=== PATIENT | female | born 1995 | race Caucasian/White ===

== ENCOUNTER 2018-05-18 23:12 | Emergency (ER) | payer OTHER ==
[2018-05-18 23:23] VITALS: BP 134/63; PULSE 94; TEMP 98; BMI 34.7
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
[2018-05-19] MEDS ORDERED: IBUPROFEN 600 MG TABLET (FP) PO ONE ×2 (00:16→00:30)
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
== END 2018-05-19 02:07 | disposition home or self-care (01) ==
LOC: JER 23:12
DX: M25.561 Pain in right knee (principal); V03.90XA Pedestrian on foot injured in collision with car, pick-up truck or van, unspecified whether traffic or nontraffic accident, initial encounter; Y93.89 Activity, other specified; Y92.89 Other specified places as the place of occurrence of the external cause
CPT/HCPCS: 73562-TC-RT-FY; 84703; 99281-25

== ENCOUNTER 2019-01-31 04:56 | Emergency (ER) | payer OTHER ==
[2019-01-31 05:19] VITALS: BMI 34.0
[2019-01-31] MEDS ORDERED: SODIUM CHLORIDE 0.9% 500 ML INFUS.BAG IV ONE (05:33)
[2019-01-31] MEDS ORDERED: FAMOTIDINE 20 MG/50 ML IVPB 20 MG/50 ML MG IVPB ONE ×2 (05:33→06:14)
[2019-01-31] MEDS ORDERED: ONDANSETRON 4 MG/2 ML VIAL IVPB ONE (05:34)
[2019-01-31] MEDS ORDERED: ACETAMINOPHEN 1000 MG/100 ML VIAL (NON FORMULARY) IVPB ONE (05:34)
--- NOTE | 2019-01-31 05:38 | PDOC ---
Attending Attestation - Resident Resident Name: Maria E Hernandez - ED Attending Attestation I have performed the following: I have examined & evaluated the patient, The case was reviewed & discussed with the resident, I agree w/resident's findings & plan - HPI HPI: 01/31/19 05:44 Pt ate a uruguayan chicken sandwich today and nothing else. She has food poisoning and abd cramps. Diffuse periumbilical pain. No RLQ pain and no LLQ pain and no epig pain. She has no fever. She has no flank pain and no dysuria. She is expecting her menses in 1 week. She has no PMHx other than asthma. 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 - Physicial Exam PE: 01/31/19 05:46 Normal exam. Crampy abd pain. - Medical Decision Making 01/31/19 05:45 Labs and IVF and reglan and morphine 01/31/19 07:06 Signed out to the day team
--- NOTE | 2019-01-31 05:40 | PDOC ---
History of Present Illness - General Chief Complaint: Pain, Acute Stated Complaint: ABDOMINAL PAIN History Source: Patient - History of Present Illness Initial Comments: 01/31/19 05:35 23 y/o/f here for abdominal pain, vomiting and diarrhea that started last night at 2100 about one hour after she had a chicken sandwich that she thinks may have gone bad. Patient states that the pain is cramping and nature. She has vomited 3 times with no blood in her vomit. She states she has had almost constant diarrhea and noted some blood in her in stool. Patient endorses some nausea, chills, and lightheadedness and feeling dehydrated. She denies any chest pain, fevers, SOB, cough, or other symptoms. Patients last menstrual period ended on 01/09, she is currently sexually active and does not use protection or any kind of contraception. PMHx: denies SHx: denies Social: denies alcohol and tobacco use Past History - Past Medical History Allergies/Adverse Reactions: Allergies Allergy/AdvReac Type Severity Reaction Status Date / Time No Known Allergies Allergy Verified 01/31/19 05:18 Home Medications: Ambulatory Orders Ibuprofen [Motrin -] 400 mg PO QID #28 tablet 08/18/15 Ondansetron [Zofran *Odt*] 4 mg SL TID PRN #9 od.tablet 01/31/19 Asthma: No Cancer: No Cardiac Disorders: No COPD: No Diabetes: No HTN: No Seizures: No Thyroid Disease: No - Reproductive History (#): 5 Para: 3 Cervical CA: No Dysfunctional Uterine Bleeding: No Ectopic : No Endometrial CA: No Polycystic Ovaries: No Therapeutic (s) & number: No Tubal Ligation: No Spontaneous : 1 - Immunization History Immunization Up to Date: Yes - Suicide/Smoking/Psychosocial Hx Smoking Status: No Smoking History: Never smoked Have you smoked in the past 12 months: No Number of Cigarettes Smoked Daily: 0 Information on smoking cessation initiated: No Hx Alcohol Use: No Drug/Substance Use Hx: No Substance Use Type: None Hx Substance Use Treatment: No Review of Systems - Review of Systems Constitutional: Yes: Chills. No: Fever HEENTM: No: Nose Congestion Respiratory: No: Cough, Shortness of Breath Cardiac (ROS): Yes: Lightheadedness. No: Chest Pain ABD/GI: Yes: Diarrhea, Nausea, Vomiting, Other (epigastric and suprapubic abd pain) : No: Burning, Dysuria Musculoskeletal: No: Back Pain Integumentary: No: Rash Neurological: No: Headache Endocrine: No: Excessive Sweating *Physical Exam - Vital Signs Last Vital Signs Temp Pulse Resp BP Pulse Ox 98.2 F 76 20 119/72 99 01/31/19 05:18 01/31/19 05:18 01/31/19 05:18 01/31/19 05:18 01/31/19 05:18 - Physical Exam General Appearance: Yes: Obese HEENT: positive: EOMI, Normal Voice, Symmetrical Neck: positive: Trachea midline, Supple Respiratory/Chest: positive: Lungs Clear, Normal Breath Sounds Cardiovascular: positive: Regular Rhythm, Regular Rate, S1, S2 Gastrointestinal/Abdominal: positive: Normal Bowel Sounds, Tender (epigastric and suprapubic tenderness to palpation ). negative: Guarding, Rebound Rectal Exam: positive: other (no emigdio blood seen on rectal exam). negative: hemorrhoids Musculoskeletal: negative: CVA Tenderness Extremity: positive: Normal Capillary Refill Integumentary: positive: Dry Neurologic: positive: Fully Oriented, Alert, Motor Strength 5/5 ED Treatment Course - LABORATORY CBC & Chemistry Diagram: 01/31/19 06:30 01/31/19 06:30 Medical Decision Making - Medical Decision Making -23 y/o/f here for abdominal pain, vomiting and diarrhea that started last night at 2100 about one hour after she had a chicken sandwich that she thinks may have gone bad. Patient states that the pain is cramping in nature. -Work up with CBC, CMP, UA, serum , Urine culture, lipase. -Symptom management with fluids, pepcid, Zofran, and tylenol. 01/31/19 07:25 -Patient signed out to Dr. Alonso. *DC/Admit/Observation/Transfer Diagnosis at time of Disposition: Nausea vomiting and diarrhea - Discharge Dispostion Disposition: HOME Condition at time of disposition: Improved - Prescriptions Prescriptions: Ondansetron [Zofran *Odt*] 4 mg SL TID PRN #9 od.tablet PRN Reason: Nausea - Referrals - Patient Instructions Printed Discharge Instructions: [place] Diet, DI for Diarrhea and Traveler's Diarrhea -- Adult, Nausea and Vomiting-Adult Additional Instructions: Follow up with your primary care doctor within 3 days regarding your Emergency Room visit. Bring all paperwork given to you today to your appointment. Take all prescriptions as indicated on labels. Eat a bland diet for 24-48 hours - bread/rice/toast/soup/applesauce. -Advance your diet as tolerated. Drink lots of pedialyte/gatorade to replace the fluids/electrolytes you have lost in the vomit/diarrhea. Take Tylenol over the counter for fever/pain. Take as advised on label. Take Ibuprofen over the counter for pain. Take as advised on label. These are not the same medications and can be taken together or alternating to achieve better pain control. Return to the Emergency Department for lightheadedness, chest pain, shortness of breath, fever>103F, fever>5 days or any other new, worsening or concerning symptoms. - Post Discharge Activity Forms/Work/School Notes: Back to Work
[2019-01-31] MEDS ORDERED: morphine CARPU-JECT 2 MG/1 ML DISP.SYRIN IVPUSH ONE (05:47)
[2019-01-31] MEDS ORDERED: ONDANSETRON 4 MG/2 ML VIAL ONE (06:14)
[2019-01-31] MEDS ORDERED: ACETAMINOPHEN INJECTION 100 ML IVPB ONE (06:14)
[2019-01-31] MEDS ORDERED: MORPHINE SULFATE 2 MG/ML VIAL ONE (06:14)
[2019-01-31 07:09] LABS: BASO % 0.7 % (0-2.0); EOS % 1.2 % (0-4.5); HEMATOCRIT 32.3 % (32.4-45.2); HEMOGLOBIN 10.5 GM/dL (10.7-15.3); LYMPH % 17.8 % (8-40); MCH 25.6 pg (25.7-33.7); MCHC 32.4 g/dl (32.0-36.0); MEAN CELL VOLUME 78.9 fl (80-96); MEAN PLT VOLUME 9.1 fl (7.5-11.1); MONO % 5.6 % (3.8-10.2); NEUT % 74.7 % (42.8-82.8); PLATELET COUNT 247 K/MM3 (134-434); RBC 4.09 M/mm3 (3.60-5.2); RDW 15.4 % (11.6-15.6); WHITE BLOOD COUNT 9.2 K/mm3 (4.0-10.0)
[2019-01-31 07:24] VITALS: BP 121/75; PULSE 78; TEMP 98.3
--- NOTE | 2019-01-31 07:30 | PDOC ---
ED Treatment Course - LABORATORY CBC & Chemistry Diagram: 01/31/19 06:30 01/31/19 06:30 - Medications Given in the ED: ED Medications Discontinued Medications Generic Name Dose Route Start Last Admin Trade Name Freshannon PRN Reason Stop Dose Admin Acetaminophen 1,000 mg 01/31/19 05:34 01/31/19 06:43 Ofirmev Injection - IVPB 01/31/19 05:35 1,000 mg ONCE ONE Administration Famotidine/Sodium Chloride 20 mg in 50 mls @ 100 mls/hr 01/31/19 05:33 06:43 Pepcid 20 Mg Premixed Ivpb - IVPB 01/31/19 06:02 100 mls/hr ONCE ONE Administration Morphine Sulfate 2 mg 01/31/19 05:47 01/31/19 06:43 Morphine Injection - IVPUSH 01/31/19 05:48 2 mg ONCE ONE Administration Ondansetron HCl 8 mg 01/31/19 05:34 01/31/19 06:43 Zofran Injection IVPB 01/31/19 05:35 8 mg ONCE ONE Administration Sodium Chloride 1,000 ml 01/31/19 05:33 01/31/19 06:42 Normal Saline - IV 01/31/19 05:34 1,000 ml ONCE ONE Administration Medical Decision Making - Medical Decision Making Pt signed out to me by Dr. Hernandez, see prior note. 23 year old female with no PMH presented to ED for epigastric and suprapubic pain associated with nausea/vomiting/diarrhea, pt noted some blood in stool. LMP 01/09/19. Initial Vital Signs Temp Pulse Resp BP Pulse Ox 98.2 F 76 20 119/72 99 01/31/19 05:18 01/31/19 05:18 01/31/19 05:18 01/31/19 05:18 01/31/19 05:18 Afebrile. No tachycardia. No tachypnea. No hypotension. No hypoxia on room air. Pt was given medications below: ED Medications Discontinued Medications Generic Name Dose Route Start Last Admin Trade Name Jacqueline PRN Reason Stop Dose Admin Acetaminophen 1,000 mg 01/31/19 05:34 01/31/19 06:43 Ofirmev Injection - IVPB 01/31/19 05:35 1,000 mg ONCE ONE Administration Famotidine/Sodium Chloride 20 mg in 50 mls @ 100 mls/hr 01/31/19 05:33 06:43 Pepcid 20 Mg Premixed Ivpb - IVPB 01/31/19 06:02 100 mls/hr ONCE ONE Administration Morphine Sulfate 2 mg 01/31/19 05:47 01/31/19 06:43 Morphine Injection - IVPUSH 01/31/19 05:48 2 mg ONCE ONE Administration Ondansetron HCl 8 mg 01/31/19 05:34 01/31/19 06:43 Zofran Injection IVPB 01/31/19 05:35 8 mg ONCE ONE Administration Sodium Chloride 1,000 ml 01/31/19 05:33 01/31/19 06:42 Normal Saline - IV 01/31/19 05:34 1,000 ml ONCE ONE Administration Vital Signs Temperature 98.3 F 01/31/19 07:23 Pulse Rate 78 01/31/19 07:23 Respiratory Rate 20 01/31/19 07:23 Blood Pressure 121/75 01/31/19 07:23 O2 Sat by Pulse Oximetry (%) 98 01/31/19 07:23 Pt remained afebrile. No tachycardia. No tachypnea. No hypotension. No hypoxia on room air. 01/31/19 07:40 01/31/19 06:30 Serum , Qual Negative 01/31/19 07:57 CMP Sodium 137 mmol/L (136-145) 01/31/19 06:30 Potassium 4.2 mmol/L (3.5-5.1) 01/31/19 06:30 Chloride 105 mmol/L (98-107) 01/31/19 06:30 Carbon Dioxide 25 mmol/L (21-32) 01/31/19 06:30 Anion Gap 7 MMOL/L (8-16) L 01/31/19 06:30 BUN 12.3 mg/dL (7-18) 01/31/19 06:30 Creatinine 0.6 mg/dL (0.55-1.3) 01/31/19 06:30 Est GFR (CKD-EPI)AfAm 146.83 01/31/19 06:30 Est GFR (CKD-EPI)NonAf 126.68 01/31/19 06:30 Random Glucose 108 mg/dL (74-106) H 01/31/19 06:30 Calcium 9.3 mg/dL (8.5-10.1) 01/31/19 06:30 Total Bilirubin 0.3 mg/dL (0.2-1) 01/31/19 06:30 AST 17 U/L (15-37) 01/31/19 06:30 ALT 29 U/L (13-61) 01/31/19 06:30 Alkaline Phosphatase 67 U/L (45-117) 01/31/19 06:30 Total Protein 7.3 g/dl (6.4-8.2) 01/31/19 06:30 Albumin 3.8 g/dl (3.4-5.0) 01/31/19 06:30 Lipase 64 U/L (73-393) L 01/31/19 06:30 No electrolyte abnormalities. No CURT. No transaminitis. Lipase wnl. 01/31/19 08:01 CBC WBC 9.2 K/mm3 (4.0-10.0) 01/31/19 06:30 RBC 4.09 M/mm3 (3.60-5.2) 01/31/19 06:30 Hgb 10.5 GM/dL (10.7-15.3) L 01/31/19 06:30 Hct 32.3 % (32.4-45.2) L D 01/31/19 06:30 MCV 78.9 fl (80-96) L 01/31/19 06:30 MCH 25.6 pg (25.7-33.7) L D 01/31/19 06:30 MCHC 32.4 g/dl (32.0-36.0) 01/31/19 06:30 RDW 15.4 % (11.6-15.6) 01/31/19 06:30 Plt Count 247 K/MM3 (134-434) 01/31/19 06:30 MPV 9.1 fl (7.5-11.1) 01/31/19 06:30 Absolute Neuts (auto) 6.9 K/mm3 (1.5-8.0) 01/31/19 06:30 Neutrophils % 74.7 % (42.8-82.8) 01/31/19 06:30 Lymphocytes % 17.8 % (8-40) 01/31/19 06:30 Monocytes % 5.6 % (3.8-10.2) 01/31/19 06:30 Eosinophils % 1.2 % (0-4.5) D 01/31/19 06:30 Basophils % 0.7 % (0-2.0) 01/31/19 06:30 Nucleated RBC % 0 % (0-0) 01/31/19 06:30 No leukocytosis. Mild microcytic anemia. 01/31/19 08:34 Pt reported improvement of symptoms, tolerated PO challenge, IV still running. 01/31/19 08:55 Stool guiaic negative. 01/31/19 08:56 Pt reassessed, reported improvement of symptoms, requesting discharge. Pt discharged with prescription for Zofran sent to pharmacy. *DC/Admit/Observation/Transfer Diagnosis at time of Disposition: Nausea vomiting and diarrhea - Discharge Dispostion Disposition: HOME Condition at time of disposition: Improved Decision to Admit order: No - Prescriptions Prescriptions: Ondansetron [Zofran *Odt*] 4 mg SL TID PRN #9 od.tablet PRN Reason: Nausea - Referrals - Patient Instructions Printed Discharge Instructions: [place] Diet, DI for Diarrhea and Traveler's Diarrhea -- Adult, Nausea and Vomiting-Adult Additional Instructions: Follow up with your primary care doctor within 3 days regarding your Emergency Room visit. Bring all paperwork given to you today to your appointment. Take all prescriptions as indicated on labels. Eat a bland diet for 24-48 hours - bread/rice/toast/soup/applesauce. -Advance your diet as tolerated. Drink lots of pedialyte/gatorade to replace the fluids/electrolytes you have lost in the vomit/diarrhea. Take Tylenol over the counter for fever/pain. Take as advised on label. Take Ibuprofen over the counter for pain. Take as advised on label. These are not the same medications and can be taken together or alternating to achieve better pain control. Return to the Emergency Department for lightheadedness, chest pain, shortness of breath, fever>103F, fever>5 days or any other new, worsening or concerning symptoms. - Post Discharge Activity Forms/Work/School Notes: Back to Work
[2019-01-31 07:44] LABS: ALBUMIN 3.8 g/dl (3.4-5.0); BILIRUBIN,TOTAL 0.3 mg/dL (0.2-1); BLOOD UREA NITROGEN 12.3 mg/dL (7-18); CALCIUM 9.3 mg/dL (8.5-10.1); CREATININE 0.6 mg/dL (0.55-1.3); POTASSIUM 4.2 mmol/L (3.5-5.1); TOT PROT 7.3 g/dl (6.4-8.2)
[2019-01-31 09:34] LABS: URINE APPEARANCE CLEAR; URINE BILIRUBIN NEGATIVE (NEGATIVE); URINE COLOR YELLOW; URINE GLUCOSE (UA) NEGATIVE (NEGATIVE); URINE KETONE NEGATIVE (NEGATIVE); URINE LEUK ESTERASE NEGATIVE (NEGATIVE); URINE NITRITE NEGATIVE (NEGATIVE); URINE PROTEIN NEGATIVE (NEGATIVE); URINE UROBILINOGEN 0.2 mg/dL (0.2-1.0)
== END 2019-01-31 09:31 | disposition home or self-care (01) ==
LOC: JER 04:56
PROC: 3E033GC Introduction of Other Therapeutic Substance into Peripheral Vein, Percutaneous Approach (ICD-10-PCS; principal; 2019-01-31)
PROC: 3E033NZ Introduction of Analgesics, Hypnotics, Sedatives into Peripheral Vein, Percutaneous Approach (ICD-10-PCS; 2019-01-31)
PROC: 3E033NZ Introduction of Analgesics, Hypnotics, Sedatives into Peripheral Vein, Percutaneous Approach (ICD-10-PCS; 2019-01-31)
PROC: 3E033GC Introduction of Other Therapeutic Substance into Peripheral Vein, Percutaneous Approach (ICD-10-PCS; 2019-01-31)
DX: R11.2 Nausea with vomiting, unspecified (principal); R19.7 Diarrhea, unspecified
CPT/HCPCS: 36415; 80053; 81003; 82272; 83690; 84703; 85025; 87086; 99284-25; J0131

== ENCOUNTER 2019-03-15 14:39 | Emergency (ER) | payer OTHER ==
[2019-03-15 14:42] VITALS: BP 121/65; PULSE 89; TEMP 98.2; BMI 34.7
--- NOTE | 2019-03-15 14:50 | PDOC ---
History of Present Illness - General Chief Complaint: Respiratory Stated Complaint: COLD SYS Time Seen by Provider: 03/15/19 14:46 - History of Present Illness Initial Comments: 03/15/19 14:49 CHIEF COMPLAINT: cough, fever HISTORY OF PRESENT ILLNESS: 24 yo F presents to [facility] with cough x 2 days accompanied by fever and vomiting since last night, Tmax 102. Patient reports 3 episodes of vomiting since last night and one episode of diarrhea just [employer]. Patient reports all her children at home have been sick with similar symptoms. Patient has taken Tylenol and Theraflu with minimal relief of symptoms. No recent travel or sick contacts. PAST MEDICAL HISTORY: Denies past medical history FAMILY HISTORY: Denies SOCIAL HISTORY: Denies tobacco, alcohol, illicit drug use. SURGICAL HISTORY: Denies ALLERGIES: No known drug allergies REVIEW OF SYSTEMS General/Constitutional: Fever x 1 day. Denies weakness, weight change. HEENT: Denies change in vision. Denies ear pain or discharge. Denies sore throat. Cardiovascular: Denies chest pain or shortness of breath. Respiratory: Dry cough. Denies wheezing, or hemoptysis. Gastrointestinal: Denies nausea, vomiting, diarrhea or constipation. Denies rectal bleeding. Genitourinary: Denies dysuria, frequency, or change in urination. Musculoskeletal: Body aches. Denies joint or muscle swelling or pain. Denies neck or back pain. Skin and breasts: Denies rash or easy bruising. Neurologic: Denies headache, vertigo, loss of consciousness, or loss of sensation. Psychiatric: Denies depression or anxiety. PHYSICAL EXAM General Appearance: Well-appearing, appropriately dressed. No apparent distress , no intoxication. HEENT: EOMI, PERRLA, normal ENT inspection, normal voice, TMs normal, pharynx normal. No conjunctival pallor. No photophobia, scleral icterus. Neck: Supple. Trachea midline. No tenderness, rigidity, carotid bruit, stridor , lymphadenopathy, or thyromegaly. Respiratory/Chest: Lungs CTAB. No shortness of breath, chest tenderness, respiratory distress, accessory muscle use. No crackles, rales, rhonchi, stridor , wheezing, dullness Cardiovascular: RRR. S1, S2. No JVD, murmur, bradycardia, tachycardia. Vascular Pulses: Dorsalis-Pedis (R): 2+, Dorsalis-Pedis (L): 2+ Gastrointestinal/Abdominal: Normal bowel sounds. Abdomen soft, non-distended. No tenderness or rebound tenderness. No organomegaly, pulsatile mass, guarding , hernia, hepatomegaly, splenomegaly. Lymphatic: No adenopathy, tenderness. Musculoskeletal/Extremities: Normal inspection. FROM of all extremities, normal capillary refill. Pelvis Stable. No CVA tenderness. No tenderness to extremities, pedal edema, swelling, erythema or deformity. Integumentary: Appropriate color, dry, warm. 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 Fully oriented, alert. Appropriate mood/affect. Motor strength 5/5. No appreciable EOM palsy, facial droop or sensory deficit. Past History - Past Medical History Allergies/Adverse Reactions: Allergies Allergy/AdvReac Type Severity Reaction Status Date / Time No Known Allergies Allergy Verified 03/15/19 14:42 Home Medications: Ambulatory Orders Ibuprofen [Motrin -] 400 mg PO QID #28 tablet 08/18/15 Ondansetron [Zofran *Odt*] 4 mg SL TID PRN #9 od.tablet 01/31/19 Benzonatate [Tessalon Pearls -] 100 mg PO TID #21 capsule 03/15/19 Pseudoephedrine HCl [Pseudoephedrine ER] 120 mg PO BID #20 tablet.er 03/15/19 Asthma: No Cancer: No Cardiac Disorders: No COPD: No Diabetes: No HTN: No Seizures: No Thyroid Disease: No - Reproductive History (#): 5 Para: 3 Cervical CA: No Dysfunctional Uterine Bleeding: No Ectopic : No Endometrial CA: No Polycystic Ovaries: No Therapeutic (s) & number: No Tubal Ligation: No Spontaneous : 1 - Immunization History Immunization Up to Date: Yes - Psycho Social/Smoking Cessation Hx Smoking Status: No Smoking History: Never smoked Have you smoked in the past 12 months: No Number of Cigarettes Smoked Daily: 0 Hx Alcohol Use: No Drug/Substance Use Hx: No Substance Use Type: None Hx Substance Use Treatment: No *Physical Exam - Vital Signs Last Vital Signs Temp Pulse Resp BP Pulse Ox 98.2 F 89 18 121/65 97 03/15/19 14:40 03/15/19 14:40 03/15/19 14:40 03/15/19 14:40 03/15/19 14:40 Medical Decision Making - Medical Decision Making 03/15/19 14:56 24 yo F presents to [facility] with cough x 2 days accompanied by fever and vomiting since last night, Tmax 102. -flu swab Discharge - Discharge Information Problems reviewed: Yes Clinical Impression/Diagnosis: Upper respiratory infection, viral Condition: Stable Disposition: HOME - Admission No - Additional Discharge Information Prescriptions: Benzonatate [Tessalon Pearls -] 100 mg PO TID #21 capsule Pseudoephedrine HCl [Pseudoephedrine ER] 120 mg PO BID #20 tablet.er - Follow up/Referral - Patient Discharge Instructions Patient Printed Discharge Instructions: DI for Viral Upper Respiratory Infection -- Adult - Post Discharge Activity Work/Back to School Note: Back to Work
== END 2019-03-15 15:43 | disposition home or self-care (01) ==
LOC: JERFT 14:39
DX: J06.9 Acute upper respiratory infection, unspecified (principal); B97.89 Other viral agents as the cause of diseases classified elsewhere
CPT/HCPCS: 87804; 99281-25

== ENCOUNTER 2019-10-18 15:40 | Inpatient (IN) | payer OTHER ==
--- NOTE | 2019-10-18 15:52 | PDOC ---
Rapid Medical Evaluation Time Seen by Provider: 10/18/19 15:48 Medical Evaluation: Allergies Allergy/AdvReac Type Severity Reaction Status Date / Time No Known Allergies Allergy Verified 03/15/19 14:42 10/18/19 15:48 Pt presents for evaluation of facial cellulitis for 4 days. Pt was initially seen at [facility] when it initially occurred and was placed on Bactrim. She has been taking it the last 4 days with worsening of symptoms and reported fever. She now states that her eye is becoming swollen and she is having trouble seeing and associated headache. Pt states she was febrile to 103F, took Tylenol just prior to arrival. Exam: cellulitic appearance to the R nare with TTP over the maxillary sinuses Orders: labs, blood cx, IV Pt to proceed to the ER for further evaluation Discharge Disposition - Diagnosis Cellulitis Qualifiers: Site of cellulitis: face Qualified Code(s): L03.211 - Cellulitis of face - Referrals - Patient Instructions - Post Discharge Activity
[2019-10-18] MEDS ORDERED: SODIUM CHLORIDE 0.9% 500 ML INFUS.BAG IV ONE (16:27)
[2019-10-18] MEDS ORDERED: ACETAMINOPHEN 1000 MG/100 ML VIAL (NON FORMULARY) IVPB ONE (16:27)
[2019-10-18] MEDS ORDERED: METOCLOPRAMIDE HCL INJECTION 10 MG/2 ML VIAL IVPB ONE (16:27)
[2019-10-18] MEDS ORDERED: VANCOMYCIN 1,500 MG in DEXTROSE 5%-WATER - 250 ML IVPB ONE (16:48)
--- NOTE | 2019-10-18 16:48 | PDOC ---
History of Present Illness - General Chief Complaint: Wound Stated Complaint: FEVER Time Seen by Provider: 10/18/19 15:48 - History of Present Illness Initial Comments: HPI: 10/18/19 16:23 24 yo F PMH asthma not on inhaler, presenting from home with R sided headache. Ms. Tompkins states that she had a infection on the tip of her nose for about a week. Went to OSH 3 days ago and was diagnosed with cellulitis, started on Bactrim. Has been taking it faithfully, but reports that the infection has spread slightly, and she has now developed fevers. States that last night she developed R sided headache associated with photophobia, phonophobia, blurry vision in her R eye, nausea without vomiting, and pain on rightward gaze. Has be en taking acetaminophen with some relief. No history of migraines in the past and has never had a similar headache before; however, her mother has history of migraines. ROS: GENERAL/CONSTITUTIONAL: endorses fever/chills. Denies diaphoresis, generalized weakness, malaise, loss of appetite, weight change HEAD, EYES, EARS, NOSE AND THROAT: denies rhinorrhea, nasal congestion, throat pain, throat swelling, difficulty swallowing, mouth swelling, ear pain, eye pain, visual changes NEUROLOGIC: denies headache, focal weakness, dizziness, unsteady gait, seizure, mental status changes, bladder or bowel incontinence CARDIOVASCULAR: denies chest pain, syncope, palpitations, irregular heart rate, lightheadedness, peripheral edema RESPIRATORY: denies cough, shortness of breath, dyspnea with exertion, orthopnea, wheezing, stridor, hemoptysis GASTROINTESTINAL: denies abdominal pain, abdominal distension, nausea, vomiting, diarrhea, constipation, melena, hematochezia GENITOURINARY: denies dysuria, frequency, urgency, hesitancy, hematuria, flank pain, genital pain MUSCULOSKELETAL: denies myalgia, arthralgia, joint swelling, back pain, neck pain SKIN: denies rash, itching, pallor HEMATOLOGIC/IMMUNOLOGIC: denies easy bleeding, easy bruising, lymphadenopathy, frequent infections ENDOCRINE: denies unexplained weight gain, unexplained weight loss, heat intolerance, cold intolerance PSYCHIATRIC: denies anxiety, depression, suicidal or homicidal ideation, hallucinations PE: Gen: well-developed, well-nourished, appears uncomfortable Neuro: AAOX4, CN II-XII intact, FTN intact, EOMI, PERRLA, 5/5 strength, SILT HEENT: atraumatic, normocephalic, mild erythema on R tip of nose. No periorbital rash or swelling. Neck: trachea midline, supple CV: regular rate, regular rhythm, no murmurs, rubs, or gallops Pulm: CTA b/l, no wheezing Abd: soft, non-distended, non-tender MSK: full ROM, intact pulses Extr: no edema, no deformities Skin: warm, dry MDM: Concern for worsening cellulitis v migraine. Considering facial infection, sinus venous thrombosis could be on the differential. However, discussed with Dr. Ferrara from neurology, who states that sinus venous thrombosis is less likely. Will have patient follow up with Dr. Ferrara on an outpatient basis. - CBC, CMP - UA/UC/urine preg - CT head considering no known history of migraines - Ofirmev, 1L NS, Reglan - vanco considering failed outpatient therapy - likely admit med/surg obs to ensure infection does not spread 10/18/19 18:[address]: no evidence of acute pathology. Will admit to med/surg observation. 10/18/19 19:25 Ms. Tompkins complaining of mild pruritus during vancomycin infusion. Will give 25mg diphenhydramine, infuse slower. Past History - Past Medical History Allergies/Adverse Reactions: Allergies Allergy/AdvReac Type Severity Reaction Status Date / Time clindamycin AdvReac Mild Itching Verified 10/21/19 10:29 Asthma: No Cancer: No Cardiac Disorders: No COPD: No Diabetes: No HTN: No Seizures: No Thyroid Disease: No - Reproductive History (#): 5 Para: 3 Cervical CA: No Dysfunctional Uterine Bleeding: No Ectopic : No Endometrial CA: No Polycystic Ovaries: No Therapeutic (s) & number: No Tubal Ligation: No Spontaneous : 1 - Immunization History Immunization Up to Date: Yes - Psycho Social/Smoking Cessation Hx Smoking Status: No Smoking History: Never smoked Have you smoked in the past 12 months: No Number of Cigarettes Smoked Daily: 0 Information on smoking cessation initiated: No Hx Alcohol Use: No Drug/Substance Use Hx: No Substance Use Type: None Hx Substance Use Treatment: No *Physical Exam - Vital Signs Last Vital Signs Temp Pulse Resp BP Pulse Ox 98.5 F 78 20 117/67 96 10/18/19 15:50 10/18/19 15:50 10/18/19 15:50 10/18/19 15:50 10/18/19 15:50 ED Treatment Course - LABORATORY CBC & Chemistry Diagram: 10/21/19 07:00 10/21/19 07:00 Discharge - Discharge Information Problems reviewed: Yes Clinical Impression/Diagnosis: Cellulitis Qualifiers: Site of cellulitis: face Qualified Code(s): L03.211 - Cellulitis of face - Follow up/Referral - Patient Discharge Instructions - Post Discharge Activity
[2019-10-18] MEDS ORDERED: METOCLOPRAMIDE HCL INJECTION 10 MG/2 ML VIAL ONE (17:05)
[2019-10-18] MEDS ORDERED: VANCOMYCIN 1 GRAM (PRE-DOCKED) 1,000 MG/250 ML BAG IVPB ONE (17:05)
[2019-10-18] MEDS ORDERED: ACETAMINOPHEN INJECTION 100 ML IVPB ONE (17:05)
[2019-10-18 17:15] LABS: BASO % 0.5 % (0-2.0); EOS % 3.2 % (0-4.5); HEMATOCRIT 33.4 % (32.4-45.2); HEMOGLOBIN 10.7 GM/dL (10.7-15.3); LYMPH % 23.5 % (8-40); MCH 24.8 pg (25.7-33.7); MCHC 32.1 g/dl (32.0-36.0); MEAN CELL VOLUME 77.2 fl (80-96); MEAN PLT VOLUME 9.2 fl (7.5-11.1); MONO % 5.4 % (3.8-10.2); NEUT % 67.4 % (42.8-82.8); PLATELET COUNT 269 K/MM3 (134-434); RBC 4.33 M/mm3 (3.60-5.2); WHITE BLOOD COUNT 9.1 K/mm3 (4.0-10.0)
[2019-10-18 17:23] LABS: INR 1.08 (0.83-1.09); PROTHROMBIN TIME (PATIENT) 12.7 SEC (9.7-13.0)
--- NOTE | 2019-10-18 17:42 | PDOC ---
Documentation entered by Selam Shelby SCRIBE, acting as scribe for Kenn Burden MD. Kenn Burden MD: This documentation has been prepared by the frankibeHeron Maria, SCRIBE, under my direction and personally reviewed by me in its entirety. I confirm that the documentation accurately reflects all work, treatment, procedures, and medical decision making performed by me. Attending Attestation - Resident Resident Name: Brianna Eid - ED Attending Attestation I have performed the following: I have examined & evaluated the patient, The case was reviewed & discussed with the resident, I agree w/resident's findings & plan, Exceptions are as noted - HPI HPI: 10/18/19 17:36 The patient is a 24 year old female with no significant past medical history of asthma who presents to the emergency department with 4 days of facial infection and headache. Pt states that 4 days ago, she noticed that her nose piercing on her L nostril had become infected. She states that there was a pimple that popped. The next day, the infection had spread to the R nostril, with redness, swellling, and pain. Pt states that she was seen at [facility] 3 days ago and was placed on Bactrim. She has been compliant with her medication but reports worsening symptoms and a reported a fever today. Pt also endorses R sided headache with light sensitivity. No eye pain or pain with EOM. Endorses some blurred vision but states she has baseline poor vision. - Physicial Exam PE: 10/18/19 17:50 "GENERAL: Awake, alert, and fully oriented, in no acute distress. HEAD: No signs of trauma EYES: PERRLA, EOMI, sclera anicteric, conjunctiva clear ENT: Auricles normal inspection, hearing grossly normal, nares patent, oropharynx clear without exudates. Moist mucosa NECK: Nontender, no stepoffs, Normal ROM, supple, no lymphadenopathy, JVD, or masses LUNGS: Breath sounds equal, clear to auscultation bilaterally. No wheezes, and no crackles HEART: Regular rate and rhythm, normal S1 and S2, no murmurs, rubs or gallops ABDOMEN: Soft, nontender, normoactive bowel sounds. No guarding, no rebound. No masses EXTREMITIES: Normal range of motion, no edema. No clubbing or cyanosis. No cords, erythema, or tenderness NEUROLOGICAL: Cranial nerves II through XII intact. 5/5 strength and sensation in all extremities, Normal speech, normal gait, normal cerebellar function SKIN: + erythema and induration to tip of nose, R nare, no fluctuance, no vesicles - Medical Decision Making 10/18/19 17:51 24 F with facial cellulitis, now failed outpt Bactrim. Pt also with R sided head ache but no focal neuro deficits. No evidence of orbital cellulitis. - Labs - CT head Given progression of infection and failure of outpt abx, will initiate IV abx Pt also with infection within "danger triangle of face", placing her at high risk for cavernous sinus thrombosis Discussed with neuro collection supervisor, Dr. Ferrara, who does not recommend MRV or CT venogram at this time Will obtain noncon CT head given new onset headache Discharge - Discharge Information Problems reviewed: Yes Clinical Impression/Diagnosis: Cellulitis Qualifiers: Site of cellulitis: face Qualified Code(s): L03.211 - Cellulitis of face - Follow up/Referral - Patient Discharge Instructions - Post Discharge Activity
[2019-10-18 17:52] LABS: ALBUMIN 4.1 g/dl (3.4-5.0); BILIRUBIN,TOTAL 0.5 mg/dL (0.2-1); BLOOD UREA NITROGEN 9.7 mg/dL (7-18); CALCIUM 8.9 mg/dL (8.5-10.1); CREATININE 0.8 mg/dL (0.55-1.3); TOT PROT 7.8 g/dl (6.4-8.2)
[2019-10-18] MEDS ORDERED: VANCOMYCIN 500 MG VIAL (RESTRICTED TO ID ONLY) ONE (18:10)
--- NOTE | 2019-10-18 19:26 | PN ---
Teaching Attending Note Name of Resident: Freedom Chapa ATTENDING PHYSICIAN STATEMENT I saw and evaluated the patient. I reviewed the resident's note and discussed the case with the resident. I agree with the resident's findings and plan as documented. SUBJECTIVE: Patient is a 24 year old woman with a PMH of Asthma who presents to the ER with 4 days of facial swelling, redness, pain and headache. Patient states that four days ago, she noticed that her nose piercing on her left nostril had become infected. She states that there was a pimple that popped. The next day, the infection had spread to the right nostril, with redness, swelling and pain. Was seen at [facility] three days ago and placed on Bactrim. Her symptoms got worse despite compliance with her antibiotics, and she developed a fever today. Also has right sided headache with light sensitivity. No eye pain or but has blurred vision, but states she has baseline poor vision. No nausea, vomiting, chest pain, SOB, abdominal pain, dysuria or hematuria. Denies alcohol, tobacco or illicit drug use. No sick contacts or recent travels. Family history of Migraine in her mother and diabetes mellitus in her father. LMP was 09/28/2019. OBJECTIVE: Alert Vital Signs Period Temp Pulse Resp BP Sys/Rees Pulse Ox Last 24 Hr 98.5 F 78 20 117/67 96 HEENT: No Jaundice, eye redness or discharge, PERRLA, EOMI. Erythema and induration over the right nose with surrounding tenderness; Normocephalic, atraumatic. External ears are normal and hearing is grossly intact. No nasal discharge. Neck: Supple, nontender. No palpable adenopathy or thyromegaly. No JVD Chest: Good effort. Clear to auscultation and percussion. Heart: Regular. No S3, rub or murmur Abdomen: Not distended, soft, nontender and no HSM. No rebound or guarding. Normal bowel sounds. Ext: Peripheral pulses intact. No leg edema. Skin: Warm and dry. No petechiae, rash or ecchymosis. Neuro: Alert. Oriented x3. CN 2-12 grossly intact. Sensation grossly intact in all four extremities and DTR are symmetric. Psych: Appropriate mood and affect. Good insight. Current Medications Generic Name Dose Route Start Last Admin Trade Name Freq PRN Reason Stop Dose Admin Diphenhydramine HCl 25 mg 10/18/19 19:25 Benadryl Injection - IVPUSH 10/18/19 19:26 ONCE ONE Home Medications Medication Instructions Recorded Mupirocin Ointment [Bactroban] 1 applic TP TID 10/18/19 Sulfamethoxazole/Trimethoprim 1 tab PO BID 10/18/19 [Bactrim Ds -] Abnormal Lab Results 10/18/19 10/18/19 16:45 17:30 MCV 77.2 L MCH 24.8 L RDW 16.0 H Anion Gap 6 L ASSESSMENT AND PLAN: 1. Facial cellulitis and Headache - Failed outpatient antibiotics. No acute abnormality noted on head CT. Sepsis work done. Patient started on IV Vancomycin. ER staff discussed case with Neurologist. Will consult ID and get CT scan of face/sinuses. Viral testing for COVID-19 ordered and patient placed on airborne, droplet and contact isolation. EKG pending. Will continue comprehensive care for all of patients comorbid conditions including Duoneb PRN for Asthma. 2. Obesity Counseled on the risks associated with obesity. Will provide patient all the necessary assistance, counseling and positive reinforcement to facilitate weight loss. Consult [employer] supervisor. 3. DVT prophylaxis - Lovenox 40 mg SQ q 24 hours. 4. Advance directives - Full code
--- NOTE | 2019-10-18 19:32 | HP ---
HISTORY OF PRESENT ILLNESS: This is a 24 year old woman with a PMH of Asthma (last exacerbation 2 yrs ago) who presents to the ER with 4 days of rt sided facial swelling, redness, pain and headache. Patient states that four days ago, she noticed that her nose piercing on her left nostril had become infected after she popped a pimple at the piercing site. She has not worn a nose ring in two yrs however. The next day, the infection had spread to the right nostril, with redness, swelling and pain and she attempted to pop the bumb on that area but nothing came out. She went to [facility] ER three days ago and was sent home on Bactrim. Her symptoms got worse despite compliance with her antibiotics, and she developed a fever two nights ago and associated with 10/10 throbbing sharp ZAVALA. Rt sided headache with photophobia and phonophobia. No eye pain, nausea/vomiting, or rhinorrhea associated with it, but had blurred vision, but states she has baseline poor vision. No chest pain, SOB, abdominal pain, sinus tenderness, dysuria or hematuria. No sick contacts or recent travels. ER course was notable for: (1) Vanco IV given with slight rxn improved with 25 of benadryl (2)reglan, ofirmev, and fluids for suspected migraine (3)CThead negative for acute pathology, no wbc, afebrile PAST SURGICAL HISTORY: none PAST OBGYN HISTORY: G-5, T-4, P-1, A-1, L-4 Social History: Smoking:denies Alcohol:denies Drugs: denies Allergies No Known Allergies Allergy (Verified 10/18/19 15:49) HOME MEDICATIONS: Home Medications Medication Instructions Recorded Mupirocin Ointment [Bactroban] 1 applic TP TID 10/18/19 Sulfamethoxazole/Trimethoprim 1 tab PO BID 10/18/19 [Bactrim Ds -] REVIEW OF SYSTEMS Negative except above PHYSICAL EXAMINATION Vital Signs - 24 hr 10/18/19 15:50 Temperature 98.5 F Pulse Rate 78 Respiratory 20 Rate Blood Pressure 117/67 O2 Sat by Pulse 96 Oximetry (%) GENERAL: Awake, alert, and fully oriented, in no acute distress. HEAD: Normal with no signs of trauma. EYES: Pupils equal, round and reactive to light, extraocular movements intact, sclera anicteric, conjunctiva clear. No lid lag, opthalmoscopic exam red reflex present, accomodation present, no discharge or erythema noted, no AV nicking or cotton wool exudates noted. EARS, NOSE, THROAT: Ears normal, nares patent, rt nostril polyp noted, rt sided facial swelling minimally, difficulty opening eyes on exam due to swelling, non- erythematous NECK: Normal range of motion, supple without lymphadenopathy, JVD, or masses. LUNGS: Breath sounds equal, clear to auscultation bilaterally. No wheezes, and no crackles. No accessory muscle use. HEART: Regular rate and rhythm, normal S1 and S2 without murmur, rub or gallop. ABDOMEN: Soft, nontender, not distended. LOWER EXTREMITIES: 2+ pulses, warm, well-perfused. No calf tenderness. No peripheral edema. NEUROLOGICAL: Cranial nerves II-XII intact. Normal speech. PSYCHIATRIC: Cooperative. Good eye contact. Appropriate mood and affect. SKIN: non-erythematous face, rt side slightly more swollen, non tender to palpation Laboratory Results - last 24 hr 10/18/19 10/18/19 10/18/19 16:45 17:30 17:30 WBC 9.1 RBC 4.33 Hgb 10.7 Hct 33.4 MCV 77.2 L MCH 24.8 L MCHC 32.1 RDW 16.0 H Plt Count 269 MPV 9.2 Absolute Neuts (auto) 6.2 Neutrophils % 67.4 Lymphocytes % 23.5 D Monocytes % 5.4 Eosinophils % 3.2 D Basophils % 0.5 Nucleated RBC % 0 Sodium 138 Potassium 4.0 Chloride 105 Carbon Dioxide 27 Anion Gap 6 L BUN 9.7 Creatinine 0.8 Est GFR (CKD-EPI)AfAm 117.93 Est GFR (CKD-EPI)NonAf 101.75 Random Glucose 82 Calcium 8.9 Total Bilirubin 0.5 AST 23 ALT 45 Alkaline Phosphatase 75 Total Protein 7.8 Albumin 4.1 Serum , Qual Negative ASSESSMENT/PLAN: This is a 24 year old woman with a PMH of Asthma (last exacerbation 2 yrs ago) who presents to the ER with 4 days of rt sided facial swelling, redness, pain and headache. Patient states that four days ago, she noticed that her nose piercing on her left nostril had become infected after she popped a pimple at the piercing site. #Rt sided erysipelas vs cellulitis - likely erysipelas given doubt its deep enough to be cellulitic and erysipelas more common on face and it is not warm to touch, non-erythematous - doubt orbital cellulitis given EOM intact without pain - IV vanco BID slowly given prior rxn to it for MRSA coverage after failing o/p Bactrim - monitor vanco trough 30 min before 4th dose, 10-15 trough should be ok, will await ID recs - CT head negative, CT of sinuses with contrast ordered to assure no orbital cellulitis or any cavernous sinus thrombosis is not present. Given she popped a pimple in area around kesselbachs plexus would caution and rule it out. - tylenol for her headache and fever - ID consulted (Dr. Avila) for further mgmt of this facial swelling and assess adequate abx coverage after failing o/p abx. - blood cultures, covid pending, patient placed on airborne, droplet and contact isolation in the mean time. #Asthma - stable not on any home meds for this as last exacerbation was 2 yrs ago - will not treat at this time - o/p PFT's FEN - No fluids indicated - will monitor and replete lytes prn - regular diet Dvt ppx: lovenox 40 daily Visit type - Emergency Visit Emergency Visit: Yes Care time: The patient presented to the Emergency Department on the above date and was hospitalized for further evaluation of their emergent condition. - New Patient This patient is new to me today: Yes Date on this admission: 10/18/19 - Critical Care Critical Care patient: No ATTENDING PHYSICIAN STATEMENT I saw and evaluated the patient. I reviewed the resident's note and discussed the case with the resident. I agree with the resident's findings and plan as documented. SUBJECTIVE: OBJECTIVE: ASSESSMENT AND PLAN:
[2019-10-18] MEDS ORDERED: ENOXAPARIN NA (PORCINE) 40 MG/0.4 ML DISP.SYRIN SQ ONE (20:22)
[2019-10-18] MEDS: ENOXAPARIN NA (PORCINE) 40 MG/0.4 ML DISP.SYRIN SQ SCH (20:43)
[2019-10-18 22:12] LABS: URINE APPEARANCE CLEAR; URINE BILIRUBIN NEGATIVE (NEGATIVE); URINE COLOR YELLOW; URINE GLUCOSE (UA) NEGATIVE (NEGATIVE); URINE KETONE NEGATIVE (NEGATIVE); URINE LEUK ESTERASE NEGATIVE (NEGATIVE); URINE NITRITE NEGATIVE (NEGATIVE); URINE PROTEIN NEGATIVE (NEGATIVE); URINE UROBILINOGEN 0.2 mg/dL (0.2-1.0)
[2019-10-18 22:41] VITALS: BMI 35.6
[2019-10-18] MEDS ORDERED: FLU VACCINE QUAD 60 MCG/0.5 ML (MDV 19-20) IM ONE (22:42)
[2019-10-18] MEDS ORDERED: ACETAMINOPHEN 325 MG TABLET (FP) PO ONE (23:25)
[2019-10-19] MEDS ORDERED: KETOROLAC TROMETHAMINE 15 MG/ML VIAL IVPUSH ONE (02:55)
[2019-10-19] MEDS ORDERED: VANCOMYCIN 1 GM in D5W (PRE-DOCKED) 1,000 MG/250 ML IVPB SCH ×2 (06:00→18:00)
[2019-10-19] MEDS ORDERED: VANCOMYCIN HCL 1,500 MG in DEXTROSE 5%-WATER - 500 ML IVPB SCH ×2 (06:00→18:00)
[2019-10-19] MEDS ORDERED: ALBUTEROL SO4 HFA INHALER IH PRN (07:59)
[2019-10-19 08:07] LABS: HEMATOCRIT 30.4 % (32.4-45.2); HEMOGLOBIN 9.8 GM/dL (10.7-15.3); MCH 25.1 pg (25.7-33.7); MCHC 32.4 g/dl (32.0-36.0); MEAN CELL VOLUME 77.5 fl (80-96); MEAN PLT VOLUME 8.8 fl (7.5-11.1); PLATELET COUNT 257 K/MM3 (134-434); RBC 3.92 M/mm3 (3.60-5.2); RDW 16.6 % (11.6-15.6); WHITE BLOOD COUNT 9.1 K/mm3 (4.0-10.0)
[2019-10-19 08:31] LABS: ANION GAP 4 MMOL/L (8-16); BLOOD UREA NITROGEN 8.7 mg/dL (7-18); CALCIUM 8.3 mg/dL (8.5-10.1); CHLORIDE 105 mmol/L (98-107); CO2 28 mmol/L (21-32); CREATININE 0.7 mg/dL (0.55-1.3); GLUCOSE,RANDOM 109 mg/dL (74-106); PHOSPHOROUS 3.5 mg/dL (2.5-4.9); SODIUM 137 mmol/L (136-145)
[2019-10-19] MEDS: ENOXAPARIN NA (PORCINE) 40 MG/0.4 ML DISP.SYRIN SQ SCH (10:01)
--- NOTE | 2019-10-19 12:39 | CON.ID ---
Consult Consult Specialty:: infectious diseases Referred by:: dr larios Reason for Consultation:: cellulitis and swellin of the face rt side - History of Present Illness Chief Complaint: swelling of the face rt side, History of Present Illness: 24 year old woman with a PMH of Asthma who presents to the ER with 4 days of rt sided facial swelling, redness, pain and headache. Patient states that four days ago, she noticed that her nose piercing on her left nostril had become infected after she popped a pimple at the piercing site. She has not worn a nose ring in two yrs however. The next day, the infection had spread to the right nostril, with redness, swelling and pain and she attempted to pop the bumb on that area but nothing came out. She went to [facility] ER three days ago and was sent home on Bactrim. Her symptoms got worse despite compliance with her antibiotics, and she developed a fever two nights ago and associated with 10/10 throbbing sharp AZVALA. Rt sided headache with photophobia and phonophobia. No eye pain, nausea/vomiting, or rhinorrhea associated with it. currently her rt side of the face is swollen and she has pain on the site of the nose - History Source History Provided By: Patient Limitations to Obtaining History: No Limitations - Past Medical History ...LMP: 09/25/19 ...: No - Alcohol/Substance Use Hx Alcohol Use: No - Smoking History Smoking history: Never smoked Have you smoked in the past 12 months: No Aproximately how many cigarettes per day: 0 - Social History History of Recent Travel: No Home Medications - Allergies Allergies/Adverse Reactions: Allergies Allergy/AdvReac Type Severity Reaction Status Date / Time No Known Allergies Allergy Verified 10/18/19 15:49 - Home Medications Home Medications: Ambulatory Orders Mupirocin Ointment [Bactroban] 1 applic TP TID 10/18/19 Sulfamethoxazole/Trimethoprim [Bactrim Ds -] 1 tab PO BID 10/18/19 Review of Systems - Review of Systems Constitutional: reports: No Symptoms Eyes: reports: No Symptoms HENT: reports: Mouth Swelling, Other Cardiovascular: reports: No Symptoms Respiratory: reports: No Symptoms Gastrointestinal: reports: No Symptoms Genitourinary: reports: No Symptoms Breasts: reports: No Symptoms Reported Musculoskeletal: reports: No Symptoms Integumentary: reports: Erythema Neurological: reports: No Symptoms Endocrine: reports: No Symptoms Hematology/Lymphatic: reports: No Symptoms Psychiatric: reports: No Symptoms Physical Exam Vital Signs: Vital Signs Temperature 98.4 F 10/19/19 06:06 Pulse Rate 75 10/19/19 06:06 Respiratory Rate 18 10/19/19 06:06 Blood Pressure 119/73 10/19/19 06:06 O2 Sat by Pulse Oximetry (%) 100 10/18/19 22:44 Constitutional: Yes: Calm, Mild Distress, Obese Eyes: Yes: Conjunctiva Clear Neck: Yes: Supple, Trachea Midline Cardiovascular: Yes: Regular Rate and Rhythm Respiratory: Yes: Regular, CTA Bilaterally Gastrointestinal: Yes: Normal Bowel Sounds, Soft Musculoskeletal: Yes: WNL Extremities: Yes: WNL Integumentary: Yes: Other Neurological: Yes: Alert, Oriented Psychiatric: Yes: Alert, Oriented Labs: CBC, BMP 10/19/19 07:30 10/19/19 07:30 Imaging - Results Cat Scan: Report Reviewed, Image Reviewed Assessment/Plan 24 year old woman with a PMH of Asthma who presents to the ER with 4 days of rt sided facial swelling, redness, pain and headache. Patient states that four days ago, she noticed that her nose piercing on her left nostril had become infected after she popped a pimple at the piercing site. rt facial cellulitis asthma plan will switch to clinda and unasyn monitor rest as per the team
--- NOTE | 2019-10-19 13:25 | PN ---
Progress Note, Physician History of Present Illness: 24 y/o F w/Mild Intermittent Asthma presents with 4 day right sided facial swelling and redness after manipulating a pimple admitted with Right Facial Cellulitis Today: Pt seen and examined at bedside in NAD Pt c/o headache States that her erythema and swelling have improved from yesterday, completed 3 days of o/p bactrim unsucessfully No change in her vision from baseline and no pain around the eye or redness Has some pain around right side of her nose - Current Medication List Current Medications: Active Medications Acetaminophen (Ofirmev Injection -) 1,000 mg IVPB Q6H PRN PRN Reason: PAIN LEVEL 7 - 10 Stop: 10/20/19 12:36 Albuterol Sulfate (Ventolin Hfa Inhaler -) 2 puff IH Q4H PRN PRN Reason: SHORT OF BREATH/WHEEZING Enoxaparin Sodium (Lovenox -) 40 mg SQ DAILY [facility] Last Admin: 10/19/19 10:01 Dose: 40 mg Documented by: Clindamycin Phosphate 300 mg/ (Dextrose) 50 mls @ 104 mls/hr IVPB Q8H-IV [facility]; Protocol Ampicillin Sodium/Sulbactam (Sodium 3 gm/ Sodium Chloride) 100 mls @ 200 mls/hr IVPB Q8H-IV [facility] Influenza Virus Vaccine Quadrival (Flulaval Quad [id number]) 60 mcg IM .ONCE ONE Stop: 10/18/19 22:43 - Objective Vital Signs: Vital Signs Temperature 98.4 F 10/19/19 06:06 Pulse Rate 75 10/19/19 06:06 Respiratory Rate 18 10/19/19 06:06 Blood Pressure 119/73 10/19/19 06:06 O2 Sat by Pulse Oximetry (%) 100 10/18/19 22:44 Constitutional: Yes: Well Nourished, No Distress, Calm Eyes: Yes: Conjunctiva Clear, EOM Intact, PERRL HENT: Yes: Other (some right sided swelling in the cheek area redness around the nose <5 cm Tenderness on right side of her nose) Cardiovascular: Yes: Regular Rate and Rhythm Respiratory: Yes: CTA Bilaterally Gastrointestinal: Yes: Normal Bowel Sounds, Soft Labs: CBC, BMP 10/19/19 07:30 10/19/19 07:30 INR, PTT INR 1.08 (0.83-1.09) 10/18/19 22:00 Impression/Plan Impression/Plan: 24 y/o F w/Mild Intermittent Asthma presents with 4 day right sided facial swelling and redness after manipulating a pimple admitted with Right Facial Cellulitis VS:Stable afebrile Labs: Grossly unremarkable CT Head unremarkable CT Sinus- Minimal perioorbital soft tissue swelling, otherwise orbits are normal , no sinusitis Right Facial Cellulitis Failed O/P Tx CT Head unremarkable CT Sinus- Minimal perioorbital soft tissue swelling, otherwise orbits are normal , no sinusitis ID consult Neuro consult Vanco 10/17-10/18 Switched To Clinda and Unasyn 10/18-TD BCx x 2 pending Tylenol 650 mg q 6 PRN fever and pain escalate pain management as needed ESR/CRP Mild Intermittent Asthma Ventolin PRN Supp care: DVT px- HSQ 5K TID GI Px not indicated Diet Reg Visit type - Emergency Visit Emergency Visit: Yes ED Registration Date: 10/18/19 Care time: The patient presented to the Emergency Department on the above date and was hospitalized for further evaluation of their emergent condition. - New Patient This patient is new to me today: No - Critical Care Critical Care patient: No - Discharge Referral Referred to [facility] Med [facility].C[facility] No
[2019-10-19] MEDS: ACETAMINOPHEN 1000 MG/100 ML VIAL (NON FORMULARY) IVPB PRN ×2 (13:39→21:08)
--- NOTE | 2019-10-19 14:21 | PN ---
Physical Exam: SUBJECTIVE: Patient seen and examined at the bedside. OBJECTIVE: Vital Signs Period Temp Pulse Resp BP Sys/Rees Pulse Ox Last 24 Hr 98.4 F-99.3 F 74-78 18-20 117-126/67-83 96-100 GENERAL: The patient is awake, alert, and fully oriented, in no acute distress. HEAD: Normal with no signs of trauma. EYES: EOM intact, area below R eye erythematic, warn, and tender, decreased visual acuity at baseline ENT: Ears normal, nares patent, oropharynx clear without exudates, moist mucous membranes. NECK: Trachea midline, full range of motion, supple. LUNGS: Breath sounds equal, clear to auscultation bilaterally, no wheezes, no crackles, no accessory muscle use. HEART: Regular rate and rhythm, S1, S2 without murmur, rub or gallop. ABDOMEN: Soft, nontender, nondistended, normoactive bowel sounds, no guarding, no rebound, no hepatosplenomegaly, no masses. EXTREMITIES: 2+ pulses, warm, well-perfused, no edema. NEUROLOGICAL: Cranial nerves II through XII grossly intact. Normal speech, gait not observed. Laboratory Results - last 24 hr 10/18/19 10/18/19 10/18/19 16:45 17:30 17:30 WBC 9.1 RBC 4.33 Hgb 10.7 Hct 33.4 MCV 77.2 L MCH 24.8 L MCHC 32.1 RDW 16.0 H Plt Count 269 MPV 9.2 Absolute Neuts (auto) 6.2 Neutrophils % 67.4 Lymphocytes % 23.5 D Monocytes % 5.4 Eosinophils % 3.2 D Basophils % 0.5 Nucleated RBC % 0 PT with INR INR PTT (Actin FS) Sodium 138 Potassium 4.0 Chloride 105 Carbon Dioxide 27 Anion Gap 6 L BUN 9.7 Creatinine 0.8 Est GFR (CKD-EPI)AfAm 117.93 Est GFR (CKD-EPI)NonAf 101.75 Random Glucose 82 Calcium 8.9 Phosphorus Magnesium Total Bilirubin 0.5 AST 23 ALT 45 Alkaline Phosphatase 75 Total Protein 7.8 Albumin 4.1 Beta HCG, Quant Serum , Qual Negative Urine Color Urine Appearance Urine pH Ur Specific Plover Urine Protein Urine Glucose (UA) Urine Ketones Urine Blood Urine Nitrite Urine Bilirubin Urine Urobilinogen Ur Leukocyte Esterase Urine HCG, Qual 10/18/19 10/18/19 10/18/19 22:00 22:00 22:00 WBC RBC Hgb Hct MCV MCH MCHC RDW Plt Count MPV Absolute Neuts (auto) Neutrophils % Lymphocytes % Monocytes % Eosinophils % Basophils % Nucleated RBC % PT with INR 12.70 INR 1.08 PTT (Actin FS) 32.0 Sodium Potassium Chloride Carbon Dioxide Anion Gap BUN Creatinine Est GFR (CKD-EPI)AfAm Est GFR (CKD-EPI)NonAf Random Glucose Calcium Phosphorus Magnesium Total Bilirubin AST ALT Alkaline Phosphatase Total Protein Albumin Beta HCG, Quant Serum , Qual Urine Color Yellow Urine Appearance Clear Urine pH 5.0 Ur Specific Plover 1.028 Urine Protein Negative Urine Glucose (UA) Negative Urine Ketones Negative Urine Blood Negative Urine Nitrite Negative Urine Bilirubin Negative Urine Urobilinogen 0.2 Ur Leukocyte Esterase Negative Urine HCG, Qual Negative 10/19/19 10/19/19 07:30 07:30 WBC 9.1 RBC 3.92 Hgb 9.8 L Hct 30.4 L MCV 77.5 L MCH 25.1 L MCHC 32.4 RDW 16.6 H Plt Count 257 MPV 8.8 Absolute Neuts (auto) Neutrophils % Lymphocytes % Monocytes % Eosinophils % Basophils % Nucleated RBC % PT with INR INR PTT (Actin FS) Sodium 137 Potassium 4.0 Chloride 105 Carbon Dioxide 28 Anion Gap 4 L BUN 8.7 Creatinine 0.7 Est GFR (CKD-EPI)AfAm 138.59 Est GFR (CKD-EPI)NonAf 119.58 Random Glucose 109 H Calcium 8.3 L Phosphorus 3.5 Magnesium 2.0 Total Bilirubin AST ALT Alkaline Phosphatase Total Protein Albumin Beta HCG, Quant < 1.0 Serum , Qual Urine Color Urine Appearance Urine pH Ur Specific Plover Urine Protein Urine Glucose (UA) Urine Ketones Urine Blood Urine Nitrite Urine Bilirubin Urine Urobilinogen Ur Leukocyte Esterase Urine HCG, Qual Active Medications Generic Name Dose Route Start Last Admin Trade Name Freq PRN Reason Stop Dose Admin Acetaminophen 1,000 mg 10/19/19 12:36 10/19/19 13:39 Ofirmev Injection - IVPB 10/20/19 12:36 1,000 mg Q6H PRN Administration PAIN LEVEL 7 - 10 Albuterol Sulfate 2 puff 10/19/19 07:59 Ventolin Hfa Inhaler - IH Q4H PRN SHORT OF BREATH/WHEEZING Enoxaparin Sodium 40 mg 10/18/19 20:15 10/19/19 10:01 Lovenox - SQ 40 mg DAILY [facility] Administration Clindamycin Phosphate 300 mg in 50 mls @ 104 mls/hr 10/19/19 13:00 Cleocin 300 Mg Premix Ivpb IVPB Q8H-IV [facility] Protocol Ampicillin Sodium/Sulbactam 100 mls @ 200 mls/hr 10/19/19 13:00 Sodium 3 gm/ Sodium Chloride IVPB Q8H-IV [facility] Influenza Virus Vaccine Quadrival 60 mcg 10/18/19 22:42 Flulaval Quad [id number] IM 10/18/19 22:43 .ONCE ONE ASSESSMENT/PLAN: 24Y F with PMH of asthma, presented to the ER with complaints of R sided facial swelling after she manually manipulated a pimple on her left nostril 4d ago, completed a 3d course of Bactrim with no effect, admitted for suspected Erysipelas/Cellulitis/SVT. #Cellulitis - Cellulitis likely, Erysipelas unlikely due to lack of demarcation, no elevation, warm, tender nature of infection - Orbital cellulitis unlikely at this point due to lack of proptosis/pain on eye movements, lack of evidence on Sinus CT of any rhinosinusitis (almost always present in cases of orbiral cellulitis), ethmoid sinusitis. - CT Head: no acute pathology - CT Sinus: Rt sided soledad-orbital soft swelling, no sinusitis - Blood and urine cx ordered - Received 2x dose Vanco, switched to Clinda 300mg Q8H and Unasyn 3g Q8H as per ID - Tylenol IV for pain/fever management #COVID r/o - Ordered due to [place] - COVID PCR pending #Anemia - H/H 9.8/30.4 with MCV 77 and elevated RDW - Likely 2/2 Fe deficiency due to elevated RDW, iron studies ordered - May need Fe PO when DCed #Hx of asthma - Last exacerbation 2 years ago, never been intubated, has not required home meds recently - Ordered Ventolin IN PRN #FEN - Regular diet #Prophylaxis - Lovenox, no GI prophylaxis indicated at this time #Dispo - Monitor on M/S Visit type - Emergency Visit Emergency Visit: Yes ED Registration Date: 10/18/19 Care time: The patient presented to the Emergency Department on the above date and was hospitalized for further evaluation of their emergent condition. - New Patient This patient is new to me today: No - Critical Care Critical Care patient: No ATTENDING PHYSICIAN STATEMENT I saw and evaluated the patient. I reviewed the resident's note and discussed the case with the resident. I agree with the resident's findings and plan as documented. SUBJECTIVE: OBJECTIVE: ASSESSMENT AND PLAN:
[2019-10-19] MEDS: CLINDAMYCIN 300 MG PREMIX IVPB 300 MG/50 ML BAG IVPB SCH ×2 (14:48→17:49)
[2019-10-19] MEDS: AMPICILLIN NA/SULBACTAM NA 3 GM in SODIUM CHLORIDE 100 ML IVPB SCH ×2 (15:11→18:23)
[2019-10-19] MEDS ORDERED: PT OWN MED DRAWER 7, Y5N ONE (17:47)
[2019-10-19] MEDS ORDERED: INSULIN (NOVOLOG) ASPART 100 UNITS/ML 10ML VIAL ONE (18:09)
[2019-10-19] MEDS ORDERED: diphenhydrAMINE HCL 25 MG CAPSULE (FP) PO ONE (19:26)
[2019-10-20] MEDS ORDERED: PT OWN MED DRAWER 7, Y5N ONE ×2 (00:17→17:59)
[2019-10-20] MEDS: AMPICILLIN NA/SULBACTAM NA 3 GM in SODIUM CHLORIDE 100 ML IVPB SCH ×3 (01:16→18:03)
[2019-10-20] MEDS: ACETAMINOPHEN 1000 MG/100 ML VIAL (NON FORMULARY) IVPB PRN (04:40)
[2019-10-20 07:56] LABS: BASO % 0.2 % (0-2.0); EOS % 4.3 % (0-4.5); HEMATOCRIT 31.7 % (32.4-45.2); HEMOGLOBIN 10.1 GM/dL (10.7-15.3); LYMPH % 25.9 % (8-40); MCH 24.8 pg (25.7-33.7); MCHC 31.8 g/dl (32.0-36.0); MEAN CELL VOLUME 77.9 fl (80-96); MEAN PLT VOLUME 9.1 fl (7.5-11.1); MONO % 7.1 % (3.8-10.2); NEUT % 62.5 % (42.8-82.8); PLATELET COUNT 256 K/MM3 (134-434); RBC 4.07 M/mm3 (3.60-5.2); RDW 16.8 % (11.6-15.6); WHITE BLOOD COUNT 10.1 K/mm3 (4.0-10.0)
[2019-10-20 08:10] LABS: IRON SERUM 23 ug/dL (50-175); TOTAL IRON BINDING CAPACITY 367 ug/dL (250-450)
[2019-10-20 08:17] LABS: ALBUMIN 3.6 g/dl (3.4-5.0); BILIRUBIN,TOTAL 0.4 mg/dL (0.2-1); BLOOD UREA NITROGEN 6.1 mg/dL (7-18); CALCIUM 8.8 mg/dL (8.5-10.1); CREATININE 0.6 mg/dL (0.55-1.3); MAGNESIUM 1.9 mg/dL (1.8-2.4); PHOSPHOROUS 4.3 mg/dL (2.5-4.9); POTASSIUM 3.9 mmol/L (3.5-5.1); TOT PROT 7.1 g/dl (6.4-8.2)
[2019-10-20] MEDS: ENOXAPARIN NA (PORCINE) 40 MG/0.4 ML DISP.SYRIN SQ SCH (09:53)
--- NOTE | 2019-10-20 10:47 | EKG ---
Test Reason : Blood Pressure : / mmHG Vent. Rate : 090 BPM Atrial Rate : 090 BPM P-R Int : 158 ms QRS Dur : 094 ms QT Int : 380 ms P-R-T Axes : 045 072 040 degrees QTc Int : 464 ms NORMAL SINUS RHYTHM NORMAL ECG NO PREVIOUS ECGS AVAILABLE Confirmed by MD Jeremías, Americo ([id number]) on 10/20/2019 10:46:49 AM Referred By: Confirmed By:Americo Veronica MD
[2019-10-20] MEDS ORDERED: FLU VACC QS2019-20(6MOS UP)/PF 60 MCG/0.5 ML SYRINGE IM ONE (12:30)
--- NOTE | 2019-10-20 12:56 | PN ---
Teaching Attending Note Name of Resident: Flakito Sheikh ATTENDING PHYSICIAN STATEMENT I saw and evaluated the patient. I reviewed the resident's note and discussed the case with the resident. I agree with the resident's findings and plan as documented. SUBJECTIVE: Seen and examined at bedside. Swelling and erythema is now localized to the rig ht nares. Patient reports she is feeling better, is hemodynamically stable and is tolerating p.o. Will discuss with ID regarding switch to p.o. antibiotics and possible discharge. OBJECTIVE: Last Vital Signs Temp Pulse Resp BP Pulse Ox 99.3 F 68 20 107/73 99 10/20/19 06:00 10/20/19 06:00 10/20/19 06:00 10/20/19 06:00 10/19/19 21:00 PE: per resident note Labs/Imaging: reviewed ASSESSMENT AND PLAN: 24-year-old female history of asthma admitted for facial cellulitis #Facial cellulitis: Improving CT sinus shows right-sided periorbital soft swelling without sinusitis Currently on Clinda and Unasyn per ID Discuss outpatient oral regimen with ID #COVID rule out: Pending Patient does not have symptoms to suggest COVID #Iron deficiency anemia We will discharge on PO iron Follow-up with PCP #Asthma At baseline Ventolin as needed #Disposition: Pending clarification of antibiotic type and course
--- NOTE | 2019-10-20 13:40 | PN ---
Progress Note, Physician History of Present Illness: improving swelling better - Current Medication List Current Medications: Active Medications Albuterol Sulfate (Ventolin Hfa Inhaler -) 2 puff IH Q4H PRN PRN Reason: SHORT OF BREATH/WHEEZING Last Admin: 10/19/19 15:46 Dose: 2 inhaler Documented by: Enoxaparin Sodium (Lovenox -) 40 mg SQ DAILY [facility] Last Admin: 10/20/19 09:53 Dose: 40 mg Documented by: Clindamycin Phosphate (Cleocin 300 Mg Premix Ivpb) 300 mg in 50 mls @ 104 mls/hr IVPB Q8H-IV [facility]; Protocol Last Admin: 10/19/19 17:49 Dose: 104 mls/hr Documented by: Ampicillin Sodium/Sulbactam (Sodium 3 gm/ Sodium Chloride) 100 mls @ 200 mls/hr IVPB Q8H-IV [facility] Last Admin: 10/20/19 09:54 Dose: 200 mls/hr Documented by: - Objective Vital Signs: Vital Signs Temperature 99.3 F 10/20/19 06:00 Pulse Rate 68 10/20/19 06:00 Respiratory Rate 10/20/19 06:00 Blood Pressure 107/73 10/20/19 06:00 O2 Sat by Pulse Oximetry (%) 99 10/19/19 21:00 Constitutional: Yes: No Distress, Calm HENT: Yes: Other (facial swelling better) Cardiovascular: Yes: S1, S2 Respiratory: Yes: Regular, CTA Bilaterally Gastrointestinal: Yes: Normal Bowel Sounds, Soft Musculoskeletal: Yes: WNL Extremities: Yes: WNL Labs: CBC, BMP 10/20/19 06:35 10/20/19 06:35 INR, PTT INR 1.08 (0.83-1.09) 10/18/19 22:00 Assessment/Plan 24 year old woman with a PMH of Asthma who presents to the ER with 4 days of rt sided facial swelling, redness, pain and headache. Patient states that four days ago, she noticed that her nose piercing on her left nostril had become infected after she popped a pimple at the piercing site. rt facial cellulitis asthma plan abx monitor rest as per the team
--- NOTE | 2019-10-20 15:37 | PN ---
Physical Exam: SUBJECTIVE: Patient seen and examined at the bedside, reports improvement in pain and swelling. Reported chest tightness overnight which resolved after holding abx (Clinda) and Ventolin administration. OBJECTIVE: Vital Signs Period Temp Pulse Resp BP Sys/Rees Pulse Ox Last 24 Hr 98.2 F-99.3 F 68-86 18-20 107-122/66-75 99 GENERAL: The patient is awake, alert, and fully oriented, in no acute distress. HEAD: Normal with no signs of trauma. EYES: EOM intact, area below R eye erythematic, warn, and tender, decreased visual acuity at baseline, improved compared to yesterday ENT: Ears normal, nares patent, oropharynx clear without exudates, moist mucous membranes. NECK: Trachea midline, full range of motion, supple. LUNGS: Breath sounds equal, clear to auscultation bilaterally, no wheezes, no crackles, no accessory muscle use. HEART: Regular rate and rhythm, S1, S2 without murmur, rub or gallop. ABDOMEN: Soft, nontender, nondistended, normoactive bowel sounds, no guarding, no rebound, no hepatosplenomegaly, no masses. EXTREMITIES: 2+ pulses, warm, well-perfused, no edema. NEUROLOGICAL: Cranial nerves II through XII grossly intact. Normal speech, gait not observed. Laboratory Results - last 24 hr 10/18/19 10/20/19 10/20/19 19:32 06:35 06:35 WBC 10.1 H RBC 4.07 Hgb 10.1 L Hct 31.7 L MCV 77.9 L MCH 24.8 L MCHC 31.8 L RDW 16.8 H Plt Count 256 MPV 9.1 Absolute Neuts (auto) 6.3 Neutrophils % 62.5 Lymphocytes % 25.9 Monocytes % 7.1 Eosinophils % 4.3 Basophils % 0.2 Nucleated RBC % 0 Sodium 140 Potassium 3.9 Chloride 108 H Carbon Dioxide 24 Anion Gap 8 BUN 6.1 L Creatinine 0.6 Est GFR (CKD-EPI)AfAm 145.80 Est GFR (CKD-EPI)NonAf 125.80 Random Glucose 83 Calcium 8.8 Phosphorus 4.3 Magnesium 1.9 Iron TIBC Iron Saturation Unsaturated IBC Total Bilirubin 0.4 AST 18 ALT 37 Alkaline Phosphatase 66 Total Protein 7.1 Albumin 3.6 COVID-19 (SUSAN) Not detected 10/20/19 06:35 WBC RBC Hgb Hct MCV MCH MCHC RDW Plt Count MPV Absolute Neuts (auto) Neutrophils % Lymphocytes % Monocytes % Eosinophils % Basophils % Nucleated RBC % Sodium Potassium Chloride Carbon Dioxide Anion Gap BUN Creatinine Est GFR (CKD-EPI)AfAm Est GFR (CKD-EPI)NonAf Random Glucose Calcium Phosphorus Magnesium Iron 23 L TIBC 367 Iron Saturation 6 L Unsaturated IBC 344 H Total Bilirubin AST ALT Alkaline Phosphatase Total Protein Albumin COVID-19 (SUSAN) Active Medications Generic Name Dose Route Start Last Admin Trade Name Freq PRN Reason Stop Dose Admin Albuterol Sulfate 2 puff 10/19/19 07:59 10/19/19 15:46 Ventolin Hfa Inhaler - IH 2 inhaler Q4H PRN Administration SHORT OF BREATH/WHEEZING Enoxaparin Sodium 40 mg 10/18/19 20:15 10/20/19 09:53 Lovenox - SQ 40 mg DAILY [facility] Administration Clindamycin Phosphate 300 mg in 50 mls @ 104 mls/hr 10/19/19 13:00 10/19/19 17:49 Cleocin 300 Mg Premix Ivpb IVPB 104 mls/hr Q8H-IV [facility] Administration Protocol Ampicillin Sodium/Sulbactam 100 mls @ 200 mls/hr 10/19/19 13:00 10/20/19 09:54 Sodium 3 gm/ Sodium Chloride IVPB 200 mls/hr Q8H-IV [facility] Administration ASSESSMENT/PLAN: 24Y F with PMH of asthma, presented to the ER with complaints of R sided facial swelling after she manually manipulated a pimple on her left nostril 4d ago, completed a 3d course of Bactrim with no effect, admitted for suspected Erysipelas/Cellulitis/SVT. #Cellulitis - Cellulitis likely, Erysipelas unlikely due to lack of demarcation, no elevation, warm, tender nature of infection - Orbital cellulitis unlikely at this point due to lack of proptosis/pain on eye movements, lack of evidence on Sinus CT of any rhinosinusitis (almost always present in cases of orbiral cellulitis), ethmoid sinusitis. - CT Head: no acute pathology - CT Sinus: Rt sided soledad-orbital soft swelling, no sinusitis - Blood and urine cx ordered, NG yet - Received 2x dose Vanco, switched to Clinda 300mg Q8H and Unasyn 3g Q8H as per ID - Reported some chest tightness, possibly 2/2 clindamycin hypersensitivity (but was also reported during Vanc administration) vs asthma, resolves after Ventolin use and DCing abx with Benadryl for rash - Tylenol IV for pain/fever management #COVID r/o - Ordered due to geographic location in an [facility] - COVID PCR NEG #Anemia - H/H 9.8/30.4 with MCV 77 and elevated RDW - Likely 2/2 Fe deficiency due to elevated RDW, iron studies ordered - May need Fe PO when DCed #Hx of asthma - Last exacerbation 2 years ago, never been intubated, has not required home meds recently - Ordered Ventolin IN PRN #FEN - Regular diet #Prophylaxis - Lovenox, no GI prophylaxis indicated at this time #Dispo - Will continue IV abx until clinically feasible for DC Visit type - Emergency Visit Emergency Visit: Yes ED Registration Date: 10/18/19 Care time: The patient presented to the Emergency Department on the above date and was hospitalized for further evaluation of their emergent condition. - New Patient This patient is new to me today: No - Critical Care Critical Care patient: No ATTENDING PHYSICIAN STATEMENT I saw and evaluated the patient. I reviewed the resident's note and discussed the case with the resident. I agree with the resident's findings and plan as documented. SUBJECTIVE: OBJECTIVE: ASSESSMENT AND PLAN:
[2019-10-20] MEDS: CLINDAMYCIN 300 MG PREMIX IVPB 300 MG/50 ML BAG IVPB SCH (18:01)
[2019-10-20] MEDS ORDERED: diphenhydrAMINE HCL 25 MG CAPSULE (FP) PO ONE ×2 (19:11→21:12)
--- NOTE | 2019-10-20 21:03 | PN ---
Progress Note (short form) - Note Progress Note: Paged by nurse that patient reports chest pressure with clindamycin this evening. She was given benadryl and ventolin with good effect. Will d/c abx until patient can be re-evaluated for appropriate abx. Pt later reports itching of face but denies difficulty breathing. Will give benadryl 25mg PO and famotidine 20mg x1.
[2019-10-20] MEDS ORDERED: FAMOTIDINE 20 MG TABLET PO ONE (21:13)
[2019-10-21] MEDS: AMPICILLIN NA/SULBACTAM NA 3 GM in SODIUM CHLORIDE 100 ML IVPB SCH ×3 (02:10→17:03)
[2019-10-21 07:36] LABS: BASO % 0.5 % (0-2.0); EOS % 5.9 % (0-4.5); HEMATOCRIT 30.8 % (32.4-45.2); LYMPH % 29.3 % (8-40); MCH 25.3 pg (25.7-33.7); MCHC 32.5 g/dl (32.0-36.0); MEAN CELL VOLUME 77.9 fl (80-96); MEAN PLT VOLUME 9.1 fl (7.5-11.1); MONO % 6.6 % (3.8-10.2); NEUT % 57.7 % (42.8-82.8); PLATELET COUNT 254 K/MM3 (134-434); RBC 3.96 M/mm3 (3.60-5.2); RDW 16.8 % (11.6-15.6); WHITE BLOOD COUNT 9.1 K/mm3 (4.0-10.0)
[2019-10-21 08:01] LABS: ALBUMIN 3.6 g/dl (3.4-5.0); BILIRUBIN,TOTAL 0.3 mg/dL (0.2-1); BLOOD UREA NITROGEN 8.2 mg/dL (7-18); CALCIUM 8.8 mg/dL (8.5-10.1); CREATININE 0.7 mg/dL (0.55-1.3); PHOSPHOROUS 4.3 mg/dL (2.5-4.9); TOT PROT 7.3 g/dl (6.4-8.2)
[2019-10-21] MEDS ORDERED: PT OWN MED DRAWER 7, Y5N ONE ×2 (09:01→16:59)
[2019-10-21] MEDS: FERROUS SO4 325 MG TABLET (FP) PO SCH (09:03)
[2019-10-21] MEDS: ENOXAPARIN NA (PORCINE) 40 MG/0.4 ML DISP.SYRIN SQ SCH (09:03)
[2019-10-21] MEDS ORDERED: SODIUM CHLORIDE FOR INHALATION 3 ML VIAL.NEB IH PRN (10:17)
[2019-10-21] MEDS ORDERED: SODIUM CHLORIDE NASAL SPRAY 44 ML BOTTLE NS PRN (11:15)
--- NOTE | 2019-10-21 12:30 | PN ---
Progress Note, Physician History of Present Illness: stable swelling of the face better,but nostril is swollen and is having drainage - Current Medication List Current Medications: Active Medications Albuterol Sulfate (Ventolin Hfa Inhaler -) 2 puff IH Q4H PRN PRN Reason: SHORT OF BREATH/WHEEZING Last Admin: 10/19/19 15:46 Dose: 2 inhaler Documented by: Enoxaparin Sodium (Lovenox -) 40 mg SQ DAILY [facility] Last Admin: 10/21/19 09:03 Dose: 40 mg Documented by: Ferrous Sulfate (Feosol -) 325 mg PO DAILY [facility] Last Admin: 10/21/19 09:03 Dose: 325 mg Documented by: Ampicillin Sodium/Sulbactam (Sodium 3 gm/ Sodium Chloride) 100 mls @ 200 mls/hr IVPB Q8H-IV [facility] Last Admin: 10/21/19 09:03 Dose: 200 mls/hr Documented by: Sodium Chloride ([place] Nasal [place] -) 2 spray NS BID PRN PRN Reason: NASAL CONGESTION - Objective Vital Signs: Vital Signs Temperature 98 F 10/21/19 08:53 Pulse Rate 60 10/21/19 08:53 Respiratory Rate 16 10/21/19 08:53 Blood Pressure 104/61 10/21/19 08:53 O2 Sat by Pulse Oximetry (%) 100 10/20/19 21:00 Constitutional: Yes: Calm, Mild Distress HENT: Yes: Other (nostril swelling) Cardiovascular: Yes: S1, S2 Respiratory: Yes: Regular, CTA Bilaterally Gastrointestinal: Yes: Normal Bowel Sounds, Soft Musculoskeletal: Yes: WNL Extremities: Yes: WNL Labs: CBC, BMP 10/21/19 07:00 10/21/19 07:00 INR, PTT INR 1.08 (0.83-1.09) 10/18/19 22:00 Assessment/Plan 24 year old woman with a PMH of Asthma who presents to the ER with 4 days of rt sided facial swelling, redness, pain and headache. Patient states that four days ago, she noticed that her nose piercing on her left nostril had become infected after she popped a pimple at the piercing site. rt facial cellulitis asthma plan abx monitor rest as per the team ent to look at the nose
[2019-10-21] MEDS ORDERED: predniSONE 20 MG TABLET (UD) PO ONE (13:00)
--- NOTE | 2019-10-21 14:43 | CONSULT ---
Consult - text type - Consultation Consultation Note: ENT consult 24 yo woman with right nasal swelling despite po and then IV abx x several days. Had facial swelling, which is improving. Recalls trying to pop a pimple in that area. Sinus CT 2 days ago shows a small collection in the right nasal ala with some rim enhancement. P/Fullness of the right nasal ala, minimal erythema. Fluctuant swelling in the right nasal vestibule, with small amount of purulent discharge. Both nares are otherwise patent. Imp: right nasal alar abscess/cellulitis Plan: incision and drainage under local anesthesia with 0.7 cc 1% lidocaine with epi. 1/4" strip gauze placed, which can be removed tomorrow. Continue antibiotic therapy. Reconsult if fails to improve.
--- NOTE | 2019-10-21 15:31 | PN ---
Teaching Attending Note Name of Resident: Freedom Chapa ATTENDING PHYSICIAN STATEMENT I saw and evaluated the patient. I reviewed the resident's note and discussed the case with the resident. I agree with the resident's findings and plan as documented. SUBJECTIVE: Seen and examined at bedside. Erythema continues to improve, however notable swelling in the right nares suggestive of developing abscess. ENT consulted and will perform incision and drainage today.Clindamycin was discontinued due to possible drug reaction: Patient complaining of chest pain with infusion OBJECTIVE: Last Vital Signs Temp Pulse Resp BP Pulse Ox 98 F 60 16 104/61 100 10/21/19 08:53 10/21/19 08:53 10/21/19 08:53 10/21/19 08:53 10/20/19 21:00 PE: per resident note Labs/Imaging: reviewed ASSESSMENT AND PLAN: 24-year-old female history of asthma admitted for facial cellulitis #Facial cellulitis: Improving CT sinus shows right-sided periorbital soft swelling without sinusitis for I&D today -continue unasyn Discuss outpatient oral regimen with ID #COVID rule out: Pending Patient does not have symptoms to suggest COVID #Iron deficiency anemia We will discharge on PO iron Follow-up with PCP #Asthma At baseline Ventolin as needed #Disposition: Pending clarification of antibiotic type and course
[2019-10-21] MEDS: LORATADINE 10 MG TABLET PO SCH (16:08)
--- NOTE | 2019-10-21 17:04 | PN ---
Physical Exam: SUBJECTIVE: Patient seen and examined. Overnight pt had rxn to clinda so it has subsequently been dc'd, denies cp, sob, abd pain, bowel/bladder complaints. OBJECTIVE: Vital Signs Period Temp Pulse Resp BP Sys/Rees Pulse Ox Last 24 Hr 97.6 F-98.3 F 60-82 16-20 104-130/61-94 100 GENERAL: The patient is awake, alert, and fully oriented, in no acute distress. Face- less erythematous or swollen, able to open eyes fully now ENT: Ears normal, nares patent with an asbcess in rt nare, moist mucous me mbranes. LUNGS: Breath sounds equal, clear to auscultation bilaterally, no wheezes, no crackles, no accessory muscle use. HEART: Regular rate and rhythm, S1, S2 without murmur, rub or gallop. ABDOMEN: Soft, nontender, nondistended. EXTREMITIES: 2+ pulses, warm, well-perfused, no edema. NEUROLOGICAL: Cranial nerves II through XII grossly intact. Normal speech, gait not observed. PSYCH: Normal mood, normal affect. SKIN: Warm, dry, normal turgor, no rashes or lesions noted Laboratory Results - last 24 hr 10/21/19 10/21/19 07:00 07:00 WBC 9.1 RBC 3.96 Hgb 10.0 L Hct 30.8 L MCV 77.9 L MCH 25.3 L MCHC 32.5 RDW 16.8 H Plt Count 254 MPV 9.1 Absolute Neuts (auto) 5.3 Neutrophils % 57.7 Lymphocytes % 29.3 Monocytes % 6.6 Eosinophils % 5.9 H Basophils % 0.5 Nucleated RBC % 0 Sodium 139 Potassium 4.0 Chloride 106 Carbon Dioxide 27 Anion Gap 6 L BUN 8.2 Creatinine 0.7 Est GFR (CKD-EPI)AfAm 138.59 Est GFR (CKD-EPI)NonAf 119.58 Random Glucose 82 Calcium 8.8 Phosphorus 4.3 Magnesium 2.0 Total Bilirubin 0.3 AST 53 H ALT 56 Alkaline Phosphatase 69 Total Protein 7.3 Albumin 3.6 Active Medications Generic Name Dose Route Start Last Admin Trade Name Freq PRN Reason Stop Dose Admin Albuterol Sulfate 2 puff 10/19/19 07:59 10/19/19 15:46 Ventolin Hfa Inhaler - IH 2 inhaler Q4H PRN Administration SHORT OF BREATH/WHEEZING Enoxaparin Sodium 40 mg 10/18/19 20:15 10/21/19 09:03 Lovenox - SQ 40 mg DAILY WILSON Administration Ferrous Sulfate 325 mg 10/21/19 10:00 10/21/19 09:03 Feosol - PO 325 mg DAILY WILSON Administration Ampicillin Sodium/Sulbactam 100 mls @ 200 mls/hr 10/19/19 13:00 10/21/19 09:03 Sodium 3 gm/ Sodium Chloride IVPB 200 mls/hr Q8H-IV WILSON Administration Loratadine 10 mg 10/21/19 15:30 10/21/19 16:08 Claritin - PO 10 mg DAILY WILSON Administration Sodium Chloride 2 spray 10/21/19 11:15 10/21/19 13:38 [place] Nasal [place] - NS 2 spray BID PRN Administration NASAL CONGESTION ASSESSMENT/PLAN: 24Y F with PMH of asthma, presented to the ER with complaints of R sided facial swelling after she manually manipulated a pimple on her left nostril 4d ago, completed a 3d course of Bactrim with no effect, admitted for suspected Erysipelas/Cellulitis/SVT. #Cellulitis - Cellulitis likely, Erysipelas unlikely due to lack of demarcation, no elevation, warm, tender nature of infection - Orbital cellulitis ruled out due to lack of proptosis/pain on eye movements, lack of evidence on Sinus CT of any rhinosinusitis (almost always present in cases of orbiral cellulitis), ethmoid sinusitis. - CT Head: no acute pathology - CT Sinus: Rt sided soledad-orbital soft swelling, no sinusitis, with abscess in rt nares - Blood and urine cx negative - c/w Unasyn 3g Q8H as per ID until dc, switch to PO augmentin on dc for 5 days per [place] - Reported some chest tightness, possibly 2/2 clindamycin hypersensitivity resolves after benadryl. - Tylenol IV for pain/fever management - consulted ENT (Dr. Gideon phillips) for abscess I&D pt tolerate it well, adequately drained with packing applied after, pt can remove the packing tm am #Anemia - H/H 9.8/30.4 with MCV 77 and elevated RDW - Likely 2/2 Fe deficiency due to elevated RDW, iron studies ordered - May need Fe PO when DCed #Hx of asthma - Last exacerbation 2 years ago, never been intubated, has not required home meds recently - Ordered Ventolin INH PRN #FEN - Regular diet #Prophylaxis - Lovenox #Dispo - Will continue IV abx until clinically feasible for DC Visit type - Emergency Visit Emergency Visit: Yes ED Registration Date: 10/18/19 Care time: The patient presented to the Emergency Department on the above date and was hospitalized for further evaluation of their emergent condition. - New Patient This patient is new to me today: No - Critical Care Critical Care patient: No - Discharge Referral Referred to [facility] No ATTENDING PHYSICIAN STATEMENT I saw and evaluated the patient. I reviewed the resident's note and discussed the case with the resident. I agree with the resident's findings and plan as documented. SUBJECTIVE: OBJECTIVE: ASSESSMENT AND PLAN:
[2019-10-22] MEDS ORDERED: PT OWN MED DRAWER 7, Y5N ONE ×2 (01:11→09:42)
[2019-10-22] MEDS: AMPICILLIN NA/SULBACTAM NA 3 GM in SODIUM CHLORIDE 100 ML IVPB SCH ×2 (01:43→09:47)
[2019-10-22 07:54] LABS: BASO % 0.2 % (0-2.0); EOS % 0.1 % (0-4.5); HEMATOCRIT 32.7 % (32.4-45.2); HEMOGLOBIN 10.2 GM/dL (10.7-15.3); LYMPH % 16.1 % (8-40); MCH 24.2 pg (25.7-33.7); MCHC 31.3 g/dl (32.0-36.0); MEAN CELL VOLUME 77.4 fl (80-96); MEAN PLT VOLUME 9.1 fl (7.5-11.1); MONO % 6.7 % (3.8-10.2); NEUT % 76.9 % (42.8-82.8); PLATELET COUNT 306 K/MM3 (134-434); RBC 4.22 M/mm3 (3.60-5.2); RDW 16.6 % (11.6-15.6); WHITE BLOOD COUNT 12.6 K/mm3 (4.0-10.0)
[2019-10-22 08:19] LABS: ALBUMIN 3.9 g/dl (3.4-5.0); BILIRUBIN,TOTAL 0.3 mg/dL (0.2-1); BLOOD UREA NITROGEN 13.7 mg/dL (7-18); CALCIUM 9.5 mg/dL (8.5-10.1); CREATININE 0.6 mg/dL (0.55-1.3); POTASSIUM 4.2 mmol/L (3.5-5.1)
[2019-10-22] MEDS: LORATADINE 10 MG TABLET PO SCH (09:47)
[2019-10-22] MEDS: FERROUS SO4 325 MG TABLET (FP) PO SCH (09:47)
[2019-10-22] MEDS: ENOXAPARIN NA (PORCINE) 40 MG/0.4 ML DISP.SYRIN SQ SCH (09:48)
[2019-10-22 10:52] VITALS: BP 122/71; PULSE 76; TEMP 98
--- NOTE | 2019-10-22 12:07 | PN ---
Progress Note, Physician History of Present Illness: looks much better nose better - Current Medication List Current Medications: Active Medications Albuterol Sulfate (Ventolin Hfa Inhaler -) 2 puff IH Q4H PRN PRN Reason: SHORT OF BREATH/WHEEZING Last Admin: 10/19/19 15:46 Dose: 2 inhaler Documented by: Enoxaparin Sodium (Lovenox -) 40 mg SQ DAILY [facility] Last Admin: 10/22/19 09:48 Dose: 40 mg Documented by: Ferrous Sulfate (Feosol -) 325 mg PO DAILY [facility] Last Admin: 10/22/19 09:47 Dose: 325 mg Documented by: Ampicillin Sodium/Sulbactam (Sodium 3 gm/ Sodium Chloride) 100 mls @ 200 mls/hr IVPB Q8H-IV [facility] Last Admin: 10/22/19 09:47 Dose: 200 mls/hr Documented by: Loratadine (Claritin -) 10 mg PO DAILY [facility] Last Admin: 10/22/19 09:47 Dose: 10 mg Documented by: Sodium Chloride ([place] Nasal [place] -) 2 spray NS BID PRN PRN Reason: NASAL CONGESTION Last Admin: 10/21/19 13:38 Dose: 2 spray Documented by: - Objective Vital Signs: Vital Signs Temperature 98 F 10/22/19 08:20 Pulse Rate 76 10/22/19 08:20 Respiratory Rate 20 10/22/19 08:20 Blood Pressure 122/71 10/22/19 08:20 O2 Sat by Pulse Oximetry (%) 97 10/21/19 20:20 Constitutional: Yes: No Distress, Calm Cardiovascular: Yes: S1, S2 Respiratory: Yes: Regular, CTA Bilaterally Gastrointestinal: Yes: Normal Bowel Sounds, Soft Musculoskeletal: Yes: WNL Extremities: Yes: WNL Neurological: Yes: Alert, Oriented Psychiatric: Yes: Alert, Oriented Labs: CBC, BMP 10/22/19 06:30 10/22/19 06:30 INR, PTT INR 1.08 (0.83-1.09) 10/18/19 22:00 Assessment/Plan 24 year old woman with a PMH of Asthma who presents to the ER with 4 days of rt sided facial swelling, redness, pain and headache. Patient states that four days ago, she noticed that her nose piercing on her left nostril had become infected after she popped a pimple at the piercing site. rt facial cellulitis asthma plan can change to oral abx rest as per the team
--- NOTE | 2019-10-22 14:44 | PN ---
Teaching Attending Note Name of Resident: Freedom Chapa ATTENDING PHYSICIAN STATEMENT I saw and evaluated the patient. I reviewed the resident's note and discussed the case with the resident. I agree with the resident's findings and plan as documented. SUBJECTIVE: Seen and examined at bedside. Swelling and erythema improved today. Patient is medically cleared for discharge. She will be sent home with additional 5 days of Augmentin. She will follow-up with her PCP. Return precautions given. OBJECTIVE: Last Vital Signs Temp Pulse Resp BP Pulse Ox 98 F 76 20 122/71 97 10/22/19 08:20 10/22/19 08:20 10/22/19 08:20 10/22/19 08:20 10/21/19 20:20 PE: per resident note Labs/Imaging: reviewed ASSESSMENT AND PLAN: 24-year-old female history of asthma admitted for facial cellulitis. . Patient was treated with Unasyn and clindamycin with improvement. She developed a small abscess and underwent I&D by ENT. Patient had multiple episodes of chest pain during infusion on this clindamycin. She should avoid taking this drug in the future. She also was found to have iron deficiency anemia and will be sent home with iron pills and a PCP follow-up.
--- NOTE | 2019-10-22 16:57 | DS ---
Physical Exam: SUBJECTIVE: Patient seen and examined. No acute events or complaints. Would like to go home. OBJECTIVE: Vital Signs Period Temp Pulse Resp BP Sys/Rees Pulse Ox Last 24 Hr 97.8 F-98.9 F 73-93 18-20 102-128/57-72 97 PHYSICAL EXAM GENERAL: The patient is awake, alert, and fully oriented, in no acute distress. LUNGS: Breath sounds equal, clear to auscultation bilaterally, no wheezes, no crackles, no accessory muscle use. HEART: Regular rate and rhythm, S1, S2 without murmur, rub or gallop. ABDOMEN: Soft, nontender, nondistended. EXTREMITIES: 2+ pulses, warm, well-perfused, no edema. SKIN: CELLULITIS improved significantly, nare abscess much improved not bleeding no discharge. LABS Laboratory Results - last 24 hr 10/22/19 10/22/19 06:30 06:30 WBC 12.6 H RBC 4.22 Hgb 10.2 L Hct 32.7 MCV 77.4 L MCH 24.2 L MCHC 31.3 L RDW 16.6 H Plt Count 306 D MPV 9.1 Absolute Neuts (auto) 9.7 H Neutrophils % 76.9 D Lymphocytes % 16.1 D Monocytes % 6.7 Eosinophils % 0.1 D Basophils % 0.2 Nucleated RBC % 0 Sodium 137 Potassium 4.2 Chloride 105 Carbon Dioxide 24 Anion Gap 9 BUN 13.7 Creatinine 0.6 Est GFR (CKD-EPI)AfAm 145.80 Est GFR (CKD-EPI)NonAf 125.80 Random Glucose 98 Calcium 9.5 Total Bilirubin 0.3 AST 44 H ALT 75 H Alkaline Phosphatase 74 Total Protein 8.0 Albumin 3.9 HOSPITAL COURSE: Date of Admission:10/18/19 This is a 24Y F with PMH of asthma, presented to the ER with complaints of R sided facial swelling after she manually manipulated a pimple on her left nostril 4d ago, completed a 3d course of Bactrim with worsening erythema, admitted for suspected Erysipelas/Cellulitis/SVT. CT sinuses showed mild Rt sided periorbital soft tissue swelling, and head CT showed no acute pathology. She received 2 doses Vancomycin, during which she complained of chest tightness and a rash. Banadryl was given in the ER for her symptoms. She was switched to IV Clindamycin and Unasyn by ID. She reported chest tightness but no rash, which may be 2/2 clindamycin hypersensitivity, or her history of asthma. Symptoms resolved with Ventolin, which was added PRN. Pt developed an abscess in her rt nare and ENT consulted to I &D the abscess and s/p I &D significant improvement in her nare abscess and will f/u with ENT if swelling worsens affecting her breathing or to return to the ER. Her swelling and symptoms improved, and she was DC'ed home on augmentin 875 bid days or 5 days, ventolin hfa inhaler, and ferrous sulfate for her new diagnosed iron deficiency anemia and was told to f/u with pcp to rpt H/H and assess need for continuation of iron further. Date of Discharge: 10/22/19 Minutes to complete discharge: 35 Discharge Summary Problems reviewed: Yes Reason For Visit: FEVER Condition: Good - Instructions Diet, Activity, Other Instructions: You were admitted to the hospital because of cellulitis, an infection of the skin. Cellulitis is an infection of the skin and soft tissue of the skin. The infection is usually caused by bacteria, such as staphylococci ("Staph") or streptococci ("Strep") that are commonly living on the skin or inner surface of the nose or mouth of otherwise normal and healthy people. Cellulitis can develop when there is a break in the skin. This allows bacteria to enter the skin and grow, causing infection and swelling. Many cases of cellulitis are mild and the involved skin normalizes completely with antibiotic treatment. However, some cases of cellulitis can be severe and lead to generalized infection. Thus, it is important to seek medical care promptly if the infection is associated with fever, rapid worsening of skin changes, other signs of progression, or if you have other medical problems, such as diabetes. You were treated with antibiotics for the infection and tylenol for pain. You developed a small abscess in your nose which has been drained by our ENT specialist (Dr. Charles). If you have any worsening of the current swelling or bleeding in that area causing you difficulty breathing you should speak with Dr. Charles or come to the emergency room. A CT scan of your head showed no abnormalities, and a CT scan of your sinuses showed signs of mild infection. You also received Ventolin for chest tightness. Your condition has now improved, and you are being discharged home. Medications: - You have been provided with a prescription for a Ventolin inhaler. Please use this inhaler if you have chest tightness or difficulty breathing/wheezing. - You should take augmentin 875 mg twice daily by mouth for 5 days, first dose starting tonight before bedtime preferrably with food. Because your iron was low while here we recommend you take iron pills (ferrous sulfate) 325 mg by mouth once daily for 30 days and then follow up with your primary care doctor to repeat your Hemoglobin blood level. You may become constipated with this medication you can picker / packer over the counter anti-const ipation medication for this if you need. Follow up: Please make the following appointments within one week: - Your PCP. If you do not have a PCP, please make an appointment with Dr. Culp at the [facility] - Dr. Charles (ENT) if you have any issues with that abscess in your nose. Additional Information: - Please return to the Emergency Department if you have any of the following: Loss of consciousness, nausea, dizziness, vomiting, shortness of breath, diarrhea, bleeding that will not stop, or persistent headache. Referrals: Tim Robles MD [Staff Physician] - ON STAFF,NOT [Primary Care Provider] - Gideon Charles MD [Staff Physician] - Disposition: HOME - Home Medications Comprehensive Discharge Medication List: Ambulatory Orders Albuterol Sulfate Inhaler - [Ventolin Hfa Inhaler -] 2 inh PO Q4H PRN #1 inh 10/22/19 Amoxicillin/Potassium Clav [Augmentin 875-125 Tablet] 1 each PO BID 5 Days #10 tablet 10/22/19 Ferrous Sulfate 325 mg PO DAILY 30 Days #30 tablet 10/22/19 This patient is new to me today: No Emergency Visit: Yes ED Registration Date: 10/18/19 Care time: The patient presented to the Emergency Department on the above date and was hospitalized for further evaluation of their emergent condition. Critical Care patient: No - Discharge Referral Referred to [facility] No ATTENDING PHYSICIAN STATEMENT I saw and evaluated the patient. I reviewed the resident's note and discussed the case with the resident. I agree with the resident's findings and plan as documented. SUBJECTIVE: OBJECTIVE: ASSESSMENT AND PLAN:
== END 2019-10-22 13:34 | disposition home or self-care (01) | DRG 383 ==
LOC: JER 15:40 → JERBED 19:31 → OBSVTOIN 20:12 → J8W 22:55
PROVIDERS: ADMIT Internal Medicine; ATTEND Internal Medicine
PROC: 0H91XZZ Drainage of Face Skin, External Approach (ICD-10-PCS; principal; 2019-10-21)
DX: L03.211 Cellulitis of face (principal); Z68.35 Body mass index [BMI] 35.0-35.9, adult; R51 Headache; J45.20 Mild intermittent asthma, uncomplicated; D50.9 Iron deficiency anemia, unspecified; T36.8X5A Adverse effect of other systemic antibiotics, initial encounter; R07.89 Other chest pain; E66.9 Obesity, unspecified; J34.0 Abscess, furuncle and carbuncle of nose
CPT/HCPCS: 36415; 70450-TC; 70487-TC; 80048; 80053; 81003; 83540; 83550; 83735; 84100; 84702; 84703; 85025; 85027; 85610; 85730; 87040; 87081; 87086; 90686; 93005; 93010; 99285-25; G0008; G0378; J0131; Q9967; U0003

== ENCOUNTER 2021-04-10 18:47 | Emergency (ER) | payer OTHER ==
[2021-04-10 19:15] VITALS: BP 122/83; PULSE 90; TEMP 98.3; BMI 35.2
[2021-04-10 21:03] LABS: URINE APPEARANCE CLEAR; URINE BILIRUBIN NEGATIVE (NEGATIVE); URINE COLOR YELLOW; URINE GLUCOSE (UA) NEGATIVE (NEGATIVE); URINE KETONE TRACE (NEGATIVE); URINE LEUK ESTERASE NEGATIVE (NEGATIVE); URINE NITRITE NEGATIVE (NEGATIVE); URINE PROTEIN NEGATIVE (NEGATIVE); URINE UROBILINOGEN 0.2 mg/dL (0.2-1.0)
[2021-04-10] MEDS ORDERED: ACETAMINOPHEN 500 MG TABLET (FP) PO ONE (21:20)
[2021-04-10 21:23] LABS: HCG,QUALITATIVE URINE NEGATIVE
[2021-04-10] MEDS ORDERED: ACETAMINOPHEN 500 MG TABLET (FP) ONE (21:43)
== END 2021-04-10 23:52 | disposition home or self-care (01) ==
LOC: JER 18:47
DX: R10.2 Pelvic and perineal pain (principal)
CPT/HCPCS: 76830-TC; 81003; 84703; 87086; 99284-25

== ENCOUNTER 2022-03-08 22:01 | Emergency (ER) | payer OTHER ==
[2022-03-08 22:29] VITALS: TEMP 98.9; BMI 35.2
[2022-03-08] MEDS ORDERED: ALBUTEROL SO4 2.5/IPRATROPIUM 0.5 INH SOL 3 ML VIAL.NEB. NEB ONE ×2 (23:00→23:15)
[2022-03-09 00:29] VITALS: BP 120/80; PULSE 117; RESP 20
== END 2022-03-09 00:30 | disposition home or self-care (01) ==
LOC: JER 22:01
PROC: 3E0F7GC Introduction of Other Therapeutic Substance into Respiratory Tract, Via Natural or Artificial Opening (ICD-10-PCS; principal; 2022-03-08)
DX: J45.909 Unspecified asthma, uncomplicated (principal)
CPT/HCPCS: 0241U-QW; 71045-TC-FY; 99284-25

== ENCOUNTER 2023-12-06 19:06 | Emergency (ER) | payer OTHER ==
[2023-12-06] MEDS ORDERED: ALBUTEROL SO4 2.5/IPRATROPIUM 0.5 INH SOL 3 ML VIAL.NEB. NEB ONE (19:16)
[2023-12-06 19:25] VITALS: BP 138/80; PULSE 79; RESP 20; TEMP 99; BMI 35.9
[2023-12-06] MEDS ORDERED: DEXAMETHASONE 4 MG TABLET (FP) ONE (19:33)
[2023-12-06] MEDS: DEXAMETHASONE 4 MG TABLET (FP) PO ONE (19:35)
[2023-12-06] MEDS: ALBUTEROL SO4 2.5/IPRATROPIUM 0.5 INH SOL 3 ML VIAL.NEB. NEB ONE (19:43)
== END 2023-12-06 21:40 | disposition home or self-care (01) ==
LOC: FER 19:06
PROC: 3E0F7GC Introduction of Other Therapeutic Substance into Respiratory Tract, Via Natural or Artificial Opening (ICD-10-PCS; principal; 2023-12-06)
DX: J45.901 Unspecified asthma with (acute) exacerbation (principal); R06.02 Shortness of breath
CPT/HCPCS: 71046-TC-FY; 93005; 99284-25

== ENCOUNTER 2024-03-20 21:27 | Emergency (ER) | payer OTHER ==
[2024-03-20 21:40] VITALS: BP 133/70; PULSE 96; RESP 20; BMI 36.8
[2024-03-20] MEDS ORDERED: ONDANSETRON 4 MG/2 ML VIAL ONE (21:49)
[2024-03-20] MEDS ORDERED: ACETAMINOPHEN INJECTION 100 ML ONE (21:49)
[2024-03-20] MEDS ORDERED: METOCLOPRAMIDE HCL INJECTION 10 MG/2 ML VIAL ONE (21:49)
[2024-03-20] MEDS: METOCLOPRAMIDE HCL INJECTION 10 MG/2 ML VIAL IVPB ONE (22:29)
[2024-03-20] MEDS: ONDANSETRON 4 MG/2 ML VIAL IVPUSH ONE (22:29)
[2024-03-20] MEDS: ACETAMINOPHEN 1000 MG/100 ML BAG IVPB ONE (22:29)
[2024-03-20] MEDS: SODIUM CHLORIDE 1,000 ML IV ONE (22:29)
[2024-03-20 22:53] LABS: HEMATOCRIT 29.1 % (32.4-45.2); HEMOGLOBIN 9.3 G/dL (10.7-15.3); MCH 23.9 pg (25.7-33.7); MEAN CELL VOLUME 74.7 fl (80-96); MEAN PLT VOLUME 9.3 fl (7.5-11.1); PLATELET COUNT 296.1 10^3/uL (134-434); RDW 16.5 % (11.6-15.6); WHITE BLOOD COUNT 10.8 10^3/uL (4.0-10.8)
[2024-03-20 23:01] LABS: ALBUMIN 4.2 g/dl (3.4-5.0); BILIRUBIN,TOTAL 0.5 mg/dl (0.2-1); CALCIUM 9.1 mg/dl (8.5-10.1); CREATININE 0.7 mg/dl (0.6-1.3); MAGNESIUM 1.7 mg/dL (1.8-2.4); PHOSPHOROUS 2.7 (2.5-4.9); TOT PROT 6.9 g/dl (6.4-8.2)
[2024-03-20] MEDS: LOSARTAN POTASSIUM 50 MG TABLET PO ONE (23:22)
[2024-03-20 23:51] VITALS: TEMP 100.2
== END 2024-03-20 23:51 | disposition home or self-care (01) ==
LOC: FER 21:27
PROC: 3E033NZ Introduction of Analgesics, Hypnotics, Sedatives into Peripheral Vein, Percutaneous Approach (ICD-10-PCS; principal; 2024-03-20)
PROC: 3E033GC Introduction of Other Therapeutic Substance into Peripheral Vein, Percutaneous Approach (ICD-10-PCS; 2024-03-20)
PROC: 3E033GC Introduction of Other Therapeutic Substance into Peripheral Vein, Percutaneous Approach (ICD-10-PCS; 2024-03-20)
PROC: 3E0337Z Introduction of Electrolytic and Water Balance Substance into Peripheral Vein, Percutaneous Approach (ICD-10-PCS; 2024-03-20)
DX: R50.9 Fever, unspecified (principal); R51.9 Headache, unspecified; M79.10 Myalgia, unspecified site; R05.9 Cough, unspecified; M54.6 Pain in thoracic spine; Z20.822 Contact with and (suspected) exposure to COVID-19
CPT/HCPCS: 0241U-QW; 36415; 80053; 83605; 83735; 84100; 85027; 87040; 99284-25; J0131

== ENCOUNTER 2024-03-23 19:36 | Emergency (ER) | payer OTHER ==
[2024-03-23 19:47] VITALS: RESP 18; BMI 36.8
[2024-03-23] MEDS ORDERED: ACETAMINOPHEN INJECTION 100 ML ONE (21:07)
[2024-03-23 21:32] LABS: HEMATOCRIT 31.5 % (32.4-45.2); HEMOGLOBIN 10.3 G/dL (10.7-15.3); MCH 24.2 pg (25.7-33.7); MCHC 32.6 g/dl (32.0-36.0); MEAN CELL VOLUME 74.1 fl (80-96); MEAN PLT VOLUME 9.2 fl (7.5-11.1); PLATELET COUNT 349.3 10^3/uL (134-434); RBC 4.25 10^6/uL (3.60-5.2); RDW 16.8 % (11.6-15.6); WHITE BLOOD COUNT 11.3 10^3/uL (4.0-10.8)
[2024-03-23] MEDS: ACETAMINOPHEN 1000 MG/100 ML BAG IVPB ONE (21:32)
[2024-03-23] MEDS: SODIUM CHLORIDE 1,000 ML IV STA (21:32)
[2024-03-23 21:49] LABS: PLATELET ESTIMATE ADEQUATE
[2024-03-23 21:54] LABS: CREATININE 0.7 mg/dl (0.6-1.3)
[2024-03-23 21:55] LABS: ALBUMIN 4.7 g/dl (3.4-5.0); BILIRUBIN,TOTAL 0.8 mg/dl (0.2-1); CALCIUM 9.4 mg/dl (8.5-10.1); POTASSIUM 4.2 mmol/L (3.5-5.1); TOT PROT 7.7 g/dl (6.4-8.2)
[2024-03-23] MEDS ORDERED: KETOROLAC TROMETHAMINE 30 MG/1 ML VIAL ONE (22:00)
[2024-03-23] MEDS: KETOROLAC TROMETHAMINE 30 MG/1 ML VIAL IVPUSH ONE (22:04)
[2024-03-23 22:49] VITALS: BP 115/78; PULSE 72; TEMP 98.6
== END 2024-03-23 22:49 | disposition home or self-care (01) ==
LOC: FER 19:36
PROC: 3E033NZ Introduction of Analgesics, Hypnotics, Sedatives into Peripheral Vein, Percutaneous Approach (ICD-10-PCS; principal; 2024-03-23)
PROC: 3E0333Z Introduction of Anti-inflammatory into Peripheral Vein, Percutaneous Approach (ICD-10-PCS; 2024-03-23)
PROC: 3E0337Z Introduction of Electrolytic and Water Balance Substance into Peripheral Vein, Percutaneous Approach (ICD-10-PCS; 2024-03-23)
DX: R50.9 Fever, unspecified (principal); B34.9 Viral infection, unspecified; R51.9 Headache, unspecified; H92.03 Otalgia, bilateral; R11.0 Nausea; M79.10 Myalgia, unspecified site; Z20.822 Contact with and (suspected) exposure to COVID-19
CPT/HCPCS: 0241U-QW; 36415; 80053; 81003; 81015; 84703; 85027; 87086; 87651; 99284-25; J0131